=== PATIENT | female | born 1940 | race Caucasian/White ===

== ENCOUNTER 2016-12-03 09:01 | Observation (INO) | payer MEDICARE, BC ==
[2016-12-03] MEDS ORDERED: Sodium Chloride 0.9% 500 ML IV ONE (09:17)
--- NOTE | 2016-12-03 10:20 | CR ---
EXAMINATION: Portable chest radiograph. HISTORY: Bradycardia. FINDINGS: The trachea is midline. The cardiomediastinal silhouette is within normal limits. No pulmonary infil trates, effusions or pneumothorax. Osseous structures appear unremarkable. IMPRESSION: No acute cardiopulmonary process.
[2016-12-03] MEDS ORDERED: Sodium Chloride 0.9% 500 ML IV SCH (10:30)
--- NOTE | 2016-12-03 10:33 | EDM.PDOC ---
ED HPI GENERAL MEDICAL PROBLEM - General Chief Complaint: Neuro Symptoms/Deficits Stated Complaint: DIZZINESS Time Seen by Provider: 12/03/16 09:03 Source of Information: Reports: Patient History Limitations: Reports: No Limitations - History of Present Illness INITIAL COMMENTS - FREE TEXT/NARRATIVE: 76-year-old female with a history of dementia but lives at home and is ambulatory and functional, also with a history of hypothyroidism on Synthroid, also with a history of vertigo on meclizine as needed, and finally hypertension for which she takes metoprolol and lisinopril. Patient now presents emergency department feeling lightheaded she might faint. Her heart rate is in the high 40s. Patient thinks she's been compliant with her medications exactly as prescribed. She has not taken any additional doses intentionally. Denies chest pain or shortness of breath. No nausea vomiting diaphoresis. No exertional symptoms. Denies other complaints - Related Data Allergies Allergy/AdvReac Type Severity Reaction Status Date / Time No Known Allergies Allergy Verified 12/03/16 09:07 Home Meds: Home Meds Calcium Carbonate [Calcium] 600 mg PO DAILY 07/23/15 [History] Metoprolol Succinate [Toprol XL] 100 mg PO DAILY 07/23/15 [History] Potassium Chloride 10 meq PO DAILY 07/23/15 [History] Simvastatin [Zocor] 40 mg PO BEDTIME 07/23/15 [History] Sucralfate [Carafate] 1 gram PO QIDACANDBED 07/23/15 [History] Lisinopril/Hydrochlorothiazide [Lisinopril-Hctz 20-25 mg Tab] 1 tab PO DAILY [History] Triamcinolone Acetonide [IJD: Triamcinolone Acetonide 0.1% Crm] 1 gm TOP BID #1 tube 07/13/16 [Rx] Levothyroxine [Synthroid] 100 mcg PO ACBREAKFAST 12/03/16 [History] Meclizine [Antivert] 12.5 mg PO Q6H PRN 12/03/16 [History] Past Medical History HEENT History: Reports: None Cardiovascular History: Reports: High Cholesterol, Hypertension Respiratory History: Reports: None Gastrointestinal History: Reports: None Genitourinary History: Reports: None 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: Musculoskeletal History: Reports: None Neurological History: Reports: Other (See Below) Other Neuro History: dementia Psychiatric History: Reports: Dementia Endocrine/Metabolic History: Reports: Hypothyroidism Hematologic History: Reports: None Dermatologic History: Reports: None - Infectious Disease History Infectious Disease History: Reports: Chicken Pox, Mumps - Past Surgical History HEENT Surgical History: Reports: None GI Surgical History: Reports: Appendectomy, Cholecystectomy Female Surgical History: Reports: Hysterectomy Social & Family History - Family History Family Medical History: Noncontributory - Tobacco Use Smoking Status *Q: Never Smoker Second Hand Smoke Exposure: No - Caffeine Use Caffeine Use: Reports: Soda - Recreational Drug Use Recreational Drug Use: No ED ROS GENERAL - Review of Systems Review Of Systems: See Below (Per history of present illness) ED EXAM, GENERAL - Physical Exam Exam: See Below (Per history of present illness) Course - Vital Signs Last Recorded V/S: Last Vital Signs Temp 36.4 C 12/03/16 09:07 Pulse 47 L 12/03/16 09:07 Resp 18 12/03/16 09:07 BP 139/62 12/03/16 09:07 Pulse Ox 99 12/03/16 09:07 - Orders/Labs/Meds Orders: Active Orders 24 hr Category Date Time Status Admission Status [Patient Status] [ADT] Stat ADT 12/03/16 10:20 Ordered Cardiac Monitoring [RC] . DIRECTED Care 12/03/16 09:17 Active EKG Documentation Completion [RC] STAT Care 12/03/16 09:17 Active Oxygen Therapy [RC] ASDIRECTED Care 12/03/16 09:17 Active Sodium Chloride 0.9% [Normal Saline] 500 ml Med 12/03/16 10:30 Ordered IV STAT Medication Orders Sodium Chloride (Normal Saline) 500 mls @ 999 mls/hr IV STAT RUTH Labs: Laboratory Tests 12/03/16 12/03/16 12/03/16 Range/Units 09:27 09:27 09:27 WBC 7.81 (4.0-11.0) K/uL RBC 3.57 L (4.30-5.90) M/uL Hgb 11.2 L (12.0-16.0) g/dL Hct 34.5 L (36.0-46.0) % MCV 96.6 (80.0-98.0) fL MCH 31.4 (27.0-32.0) pg MCHC 32.5 (31.0-37.0) g/dL RDW Std Deviation 45.7 (28.0-62.0) fl RDW Coeff of Rafa 13 (11.0-15.0) % Plt Count 216 (150-400) K/uL MPV 9.80 (7.40-12.00) fL Neut % (Auto) 70.6 (48.0-80.0) % Lymph % (Auto) 18.8 (16.0-40.0) % Vigo % (Auto) 9.0 (0.0-15.0) % Eos % (Auto) 1.3 (0.0-7.0) % Baso % (Auto) 0.3 (0.0-1.5) % Neut # (Auto) 5.5 (1.4-5.7) K/uL Lymph # (Auto) 1.5 (0.6-2.4) K/uL Vigo # (Auto) 0.7 (0.0-0.8) K/uL Eos # (Auto) 0.1 (0.0-0.7) K/uL Baso # (Auto) 0.0 (0.0-0.1) K/uL Nucleated RBC % 0.0 /100WBC Nucleated RBCs # 0 K/uL INR 0.97 (0.86-1.11) Sodium 139 (136-146) mmol/L Potassium 4.3 (3.5-5.1) mmol/L Chloride 108 (98-110) mmol/L Carbon Dioxide 24 (21-31) mmol/L BUN 26 H (6.0-23.0) mg/dL Creatinine 1.2 (0.6-1.5) mg/dL Est Cr Clr Drug Dosing 34.77 mL/min Estimated GFR (MDRD) 43.4 ml/min Glucose 86 (60-110) mg/dL Calcium 9.4 (8.8-10.8) mg/dL Total Bilirubin 0.6 (0.1-1.5) mg/dL AST 16 (5-40) IU/L ALT 11 (8-54) IU/L Alkaline Phosphatase 60 (40-150) Troponin I (0.0-0.29) NG/ML Total Protein 7.0 (6.0-8.0) g/dL Albumin 3.9 (3.4-4.8) g/dL Globulin 3.1 (2.0-3.5) g/dL Albumin/Globulin Ratio 1.3 (1.3-2.8) Amylase 36 (10-90) U/L Lipase 14 (7-80) U/L 12/03/16 Range/Units 09:27 WBC (4.0-11.0) K/uL RBC (4.30-5.90) M/uL Hgb (12.0-16.0) g/dL Hct (36.0-46.0) % MCV (80.0-98.0) fL MCH (27.0-32.0) pg MCHC (31.0-37.0) g/dL RDW Std Deviation (28.0-62.0) fl RDW Coeff of Rafa (11.0-15.0) % Plt Count (150-400) K/uL MPV (7.40-12.00) fL Neut % (Auto) (48.0-80.0) % Lymph % (Auto) (16.0-40.0) % Vigo % (Auto) (0.0-15.0) % Eos % (Auto) (0.0-7.0) % Baso % (Auto) (0.0-1.5) % Neut # (Auto) (1.4-5.7) K/uL Lymph # (Auto) (0.6-2.4) K/uL Vigo # (Auto) (0.0-0.8) K/uL Eos # (Auto) (0.0-0.7) K/uL Baso # (Auto) (0.0-0.1) K/uL Nucleated RBC % /100WBC Nucleated RBCs # K/uL INR (0.86-1.11) Sodium (136-146) mmol/L Potassium (3.5-5.1) mmol/L Chloride (98-110) mmol/L Carbon Dioxide (21-31) mmol/L BUN (6.0-23.0) mg/dL Creatinine (0.6-1.5) mg/dL Est Cr Clr Drug Dosing mL/min Estimated GFR (MDRD) ml/min Glucose (60-110) mg/dL Calcium (8.8-10.8) mg/dL Total Bilirubin (0.1-1.5) mg/dL AST (5-40) IU/L ALT (8-54) IU/L Alkaline Phosphatase (40-150) Troponin I < 0.10 (0.0-0.29) NG/ML Total Protein (6.0-8.0) g/dL Albumin (3.4-4.8) g/dL Globulin (2.0-3.5) g/dL Albumin/Globulin Ratio (1.3-2.8) Amylase (10-90) U/L Lipase (7-80) U/L Meds: Medications Generic Name Dose Route Start Last Admin Trade Name Freq PRN Reason Stop Dose Admin Sodium Chloride 500 mls @ 999 mls/hr 12/03/16 10:30 Normal Saline IV STAT RUTH Discontinued Medications Generic Name Dose Route Start Last Admin Trade Name Freq PRN Reason Stop Dose Admin Sodium Chloride 500 mls @ 999 mls/hr 12/03/16 09:17 12/03/16 09:24 Normal Saline IV 12/03/16 09:47 999 mls/hr .Bolus ONE Administration Departure - Departure Time of Disposition: 10:32 Disposition: Refer to Observation Condition: good Clinical Impression: Symptomatic bradycardia, Dizziness - Discharge Information Forms: ED Department Discharge - My Orders Last 24 Hours: My Active Orders 12/03/16 09:17 Cardiac Monitoring [RC] . DIRECTED EKG Documentation Completion [RC] STAT Oxygen Therapy [RC] ASDIRECTED 12/03/16 10:20 Admission Status [Patient Status] [ADT] Stat 12/03/16 10:30 Sodium Chloride 0.9% [Normal Saline] 500 ml IV STAT - Assessment/Plan Last 24 Hours: My Active Orders 12/03/16 09:17 Cardiac Monitoring [RC] . DIRECTED EKG Documentation Completion [RC] STAT Oxygen Therapy [RC] ASDIRECTED 12/03/16 10:20 Admission Status [Patient Status] [ADT] Stat 12/03/16 10:30 Sodium Chloride 0.9% [Normal Saline] 500 ml IV STAT
[2016-12-03] MEDS ORDERED: Ondansetron 4 MG/2 ML SDV IVPUSH PRN (10:58)
--- NOTE | 2016-12-03 11:07 | PCM.HP ---
H&P History of Present Illness - General Admit Problem/Dx: Admission Diagnosis/Problem Admission Diagnosis/Problem Bradycardia - History of Present Illness Initial Comments - Free Text/Narative: 76 yo female with pmh of vertigo, hypertension and dementia who presents with one day history of dizziness. She is mainly dizzy when she stands up. Due to her dementia she is a poor historian. She was admitted five months ago for vertigo. In the ED she was noted to have blood pressure of 151/76 and heart rate of 47 with left bundle branch block which was seen on EKG on last admission. She has been taking metoprolol succinate 100mg daily for several years for hypertension. - Related Data Allergies/Adverse Reactions: Allergies Allergy/AdvReac Type Severity Reaction Status Date / Time No Known Allergies Allergy Verified 12/03/16 09:07 Home Medications: Home Meds Metoprolol Succinate [Toprol XL] 100 mg PO DAILY 07/23/15 [History] Potassium Chloride 10 meq PO DAILY 07/23/15 [History] Simvastatin [Zocor] 40 mg PO BEDTIME 07/23/15 [History] Sucralfate [Carafate] 1 gram PO QIDACANDBED 07/23/15 [History] Lisinopril/Hydrochlorothiazide [Lisinopril-Hctz 20-25 mg Tab] 1 tab PO DAILY [History] Triamcinolone Acetonide [IJD: Triamcinolone Acetonide 0.1% Crm] 1 gm TOP BID #1 tube 07/13/16 [Rx] Levothyroxine [Synthroid] 100 mcg PO ACBREAKFAST 12/03/16 [History] Meclizine [Antivert] 12.5 mg PO Q6H PRN 12/03/16 [History] Past Medical History HEENT History: Reports: None Cardiovascular History: Reports: High Cholesterol, Hypertension Respiratory History: Reports: None Gastrointestinal History: Reports: None Genitourinary History: Reports: None 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: Musculoskeletal History: Reports: None Neurological History: Reports: Other (See Below) Other Neuro History: dementia Psychiatric History: Reports: Dementia Endocrine/Metabolic History: Reports: Hypothyroidism Hematologic History: Reports: None Dermatologic History: Reports: None - Infectious Disease History Infectious Disease History: Reports: Chicken Pox, Mumps - Past Surgical History HEENT Surgical History: Reports: None GI Surgical History: Reports: Appendectomy, Cholecystectomy Female Surgical History: Reports: Hysterectomy Social & Family History - Family History Family Medical History: Noncontributory - Tobacco Use Smoking Status *Q: Never Smoker Second Hand Smoke Exposure: No - Caffeine Use Caffeine Use: Reports: Soda - Recreational Drug Use Recreational Drug Use: No H&P Review of Systems - Review of Systems: Review Of Systems: Unable To Obtain Exam - Exam Exam: See Below - Vital Signs Vital Signs: Last Vital Signs Temp 36.4 C 12/03/16 09:07 Pulse 48 L 12/03/16 10:20 Resp 18 12/03/16 10:20 BP 124/56 L 12/03/16 10:20 Pulse Ox 99 12/03/16 10:20 Weight: 72 kg - Exam General: Alert, Cooperative HEENT: Mucosa Moist & Redmon Lungs: Clear to Auscultation, Normal Respiratory Effort Cardiovascular: Regular Rate, Regular Rhythm Abdomen: Soft. No: Tenderness Extremities: Normal Inspection Skin: Warm, Dry, Intact Neurological: No: Focal Deficit - Patient Data Lab Results Last 24 hrs: Laboratory Results - last 24 hr 12/03/16 12/03/16 12/03/16 Range/Units 09:27 09:27 09:27 WBC 7.81 (4.0-11.0) K/uL RBC 3.57 L (4.30-5.90) M/uL Hgb 11.2 L (12.0-16.0) g/dL Hct 34.5 L (36.0-46.0) % MCV 96.6 (80.0-98.0) fL MCH 31.4 (27.0-32.0) pg MCHC 32.5 (31.0-37.0) g/dL RDW Std Deviation 45.7 (28.0-62.0) fl RDW Coeff of Rafa 13 (11.0-15.0) % Plt Count 216 (150-400) K/uL MPV 9.80 (7.40-12.00) fL Neut % (Auto) 70.6 (48.0-80.0) % Lymph % (Auto) 18.8 (16.0-40.0) % Dixon % (Auto) 9.0 (0.0-15.0) % Eos % (Auto) 1.3 (0.0-7.0) % Baso % (Auto) 0.3 (0.0-1.5) % Neut # (Auto) 5.5 (1.4-5.7) K/uL Lymph # (Auto) 1.5 (0.6-2.4) K/uL Dixon # (Auto) 0.7 (0.0-0.8) K/uL Eos # (Auto) 0.1 (0.0-0.7) K/uL Baso # (Auto) 0.0 (0.0-0.1) K/uL Nucleated RBC % 0.0 /100WBC Nucleated RBCs # 0 K/uL INR 0.97 (0.86-1.11) Sodium 139 (136-146) mmol/L Potassium 4.3 (3.5-5.1) mmol/L Chloride 108 (98-110) mmol/L Carbon Dioxide 24 (21-31) mmol/L BUN 26 H (6.0-23.0) mg/dL Creatinine 1.2 (0.6-1.5) mg/dL Est Cr Clr Drug Dosing 34.77 mL/min Estimated GFR (MDRD) 43.4 ml/min Glucose 86 (60-110) mg/dL Calcium 9.4 (8.8-10.8) mg/dL Total Bilirubin 0.6 (0.1-1.5) mg/dL AST 16 (5-40) IU/L ALT 11 (8-54) IU/L Alkaline Phosphatase 60 (40-150) Troponin I (0.0-0.29) NG/ML Total Protein 7.0 (6.0-8.0) g/dL Albumin 3.9 (3.4-4.8) g/dL Globulin 3.1 (2.0-3.5) g/dL Albumin/Globulin Ratio 1.3 (1.3-2.8) Amylase 36 (10-90) U/L Lipase 14 (7-80) U/L 12/03/16 Range/Units 09:27 WBC (4.0-11.0) K/uL RBC (4.30-5.90) M/uL Hgb (12.0-16.0) g/dL Hct (36.0-46.0) % MCV (80.0-98.0) fL MCH (27.0-32.0) pg MCHC (31.0-37.0) g/dL RDW Std Deviation (28.0-62.0) fl RDW Coeff of Rafa (11.0-15.0) % Plt Count (150-400) K/uL MPV (7.40-12.00) fL Neut % (Auto) (48.0-80.0) % Lymph % (Auto) (16.0-40.0) % Dixon % (Auto) (0.0-15.0) % Eos % (Auto) (0.0-7.0) % Baso % (Auto) (0.0-1.5) % Neut # (Auto) (1.4-5.7) K/uL Lymph # (Auto) (0.6-2.4) K/uL Dixon # (Auto) (0.0-0.8) K/uL Eos # (Auto) (0.0-0.7) K/uL Baso # (Auto) (0.0-0.1) K/uL Nucleated RBC % /100WBC Nucleated RBCs # K/uL INR (0.86-1.11) Sodium (136-146) mmol/L Potassium (3.5-5.1) mmol/L Chloride (98-110) mmol/L Carbon Dioxide (21-31) mmol/L BUN (6.0-23.0) mg/dL Creatinine (0.6-1.5) mg/dL Est Cr Clr Drug Dosing mL/min Estimated GFR (MDRD) ml/min Glucose (60-110) mg/dL Calcium (8.8-10.8) mg/dL Total Bilirubin (0.1-1.5) mg/dL AST (5-40) IU/L ALT (8-54) IU/L Alkaline Phosphatase (40-150) Troponin I < 0.10 (0.0-0.29) NG/ML Total Protein (6.0-8.0) g/dL Albumin (3.4-4.8) g/dL Globulin (2.0-3.5) g/dL Albumin/Globulin Ratio (1.3-2.8) Amylase (10-90) U/L Lipase (7-80) U/L Result Diagrams: 12/04/16 04:23 12/04/16 04:23 *Q Meaningful Use (ADM) - VTE *Q VTE Criteria *Q: - Stroke *Q Stroke Criteria *Q: - AMI *Q AMI Criteria *Q: Problem List Initiated/Reviewed/Updated: Yes Orders Last 24hrs: Active Orders 24 hr Category Date Time Status Admission Status [Patient Status] [ADT] Stat ADT 12/03/16 10:20 Active Antiembolic Devices [RC] PER UNIT ROUTINE Care 12/03/16 11:00 Ordered Cardiac Monitoring [RC] . DIRECTED Care 12/03/16 09:17 Active EKG Documentation Completion [RC] STAT Care 12/03/16 09:17 Active Intake and Output [RC] QSHIFT Care 12/03/16 10:59 Ordered Oxygen Therapy [RC] ASDIRECTED Care 12/03/16 09:17 Active Oxygen Therapy [RC] PRN Care 12/03/16 10:58 Ordered Up With Assistance [RC] ASDIRECTED Care 12/03/16 10:58 Ordered VTE/DVT Education [RC] PER UNIT ROUTINE Care 12/03/16 10:58 Ordered Vital Signs [RC] Q4H Care 12/03/16 10:58 Ordered Regular Diet [DIET] Diet 12/03/16 Breakfast Ordered BASIC METABOLIC PANEL,BMP [CHEM] AM Lab 12/04/16 05:11 Ordered CBC WITH AUTO DIFF [HEME] AM Lab 12/04/16 05:11 Ordered TROPONIN I [CHEM] Q6H Lab 12/03/16 17:00 Ordered TROPONIN I [CHEM] Q6H Lab 12/03/16 23:00 Ordered TSH [CHEM] Stat Lab 12/03/16 11:02 Ordered Heparin Sodium Med 12/03/16 21:00 Ordered 5,000 units SUBCUT Q12HR Levothyroxine [Synthroid] Med 12/04/16 07:30 Ordered 100 mcg PO ACBREAKFAST Ondansetron [Zofran] Med 12/03/16 10:58 Ordered 4 mg IVPUSH Q4H PRN Simvastatin [Zocor] Med 12/03/16 21:00 Ordered 40 mg PO BEDTIME Sodium Chloride 0.9% [Normal Saline] 500 ml Med 12/03/16 10:30 Active IV STAT Sequential Compression Device [OM.PC] Per Unit Routine Oth 12/03/16 10:59 Ordered Resuscitation Status Routine Resus Stat 12/03/16 10:58 Ordered Medication Orders Heparin Sodium (Porcine) (Heparin Sodium) 5,000 units SUBCUT Q12HR [facility] Sodium Chloride (Normal Saline) 500 mls @ 999 mls/hr IV STAT RUTH Last Admin: 12/03/16 10:34 Dose: 999 mls/hr Levothyroxine Sodium (Synthroid) 100 mcg PO ACBREAKFAST [facility] Ondansetron HCl (Zofran) 4 mg IVPUSH Q4H PRN PRN Reason: Nausea Simvastatin (Zocor) 40 mg PO BEDTIME [facility] Assessment/Plan Comment:: 76 yo female admitted for dizziness with history of vertigo and findings of bradycardia. Her metoprolol was discontinued and she monitored on telemetry overnight. Her heart rate ranged 45-70 but was mostly in the 50s. This morning she is walking hallway without difficulty. is requesting discharge. I did discuss case with Dr. Gustafson but family is wanting to discharged this morning before seeing him and follow up with him as outpatient. Will set up home event monitor. Will have them discontinue metoprolol at home. Patient has heme positive stools but hgb has been stable. Will have her follow up with Dr. Gonzalez.
--- NOTE | 2016-12-03 14:25 | CT ---
EXAMINATION: Non contrast CT head. Coronal and sagittal reformats. HISTORY: Dizziness FINDINGS: No evidence of intra or extra axial hemorrhage, mass, midline shift, hydrocephalus or edema. Mild g eneralized atrophy. No hypoattenuation changes in the major vascular territories to suggest acute infarct. No abnormal intracranial calcifications are detected. No evidence of substantial vascular calcifica tions. Paranasal sinuses and mastoid air cells are well aerated without substantial findings. The orbits a nd globes appear symmetric. Pituitary fossa appears unremarkable. Calvarium is intact. No evidence of skull fracture. IMPRESSION: No acute intracranial findings.
[2016-12-03] MEDS ORDERED: Heparin Sodium 5,000 Units/ML Vial SUBCUT SCH (21:00)
[2016-12-03] MEDS ORDERED: Simvastatin 40 MG Tab PO SCH (21:00)
[2016-12-04] MEDS ORDERED: Levothyroxine 100 MCG Tab PO SCH (07:30)
[2016-12-04 09:49] VITALS: BP 129/90
--- NOTE | 2016-12-04 12:53 | CONS ---
DATE OF CONSULTATION: 12/03/2016 DATE OF : 1940 PRIMARY CARE PHYSICIAN: None PCP REASON FOR CONSULTATION: Bradycardia, symptomatic. HISTORY OF PRESENT ILLNESS: This is a 76-year-old female with history of hyperlipidemia, hypertension, hypothyroidism who has been in the hospital for feeling dizzy. The patient also had a history of dementia and the patient is a poor historian. She was not sure what reason and why she is in the hospital. She did not know the time and date. However later when asked her about feeling dizzy, she said yes I felt dizzy, but she is not currently and also she denied other symptoms such as chest pain, shortness of breath. She also was saying that she did not feel any dizzy when she walked around. However when looked back in the outpatient record, seems like she has a chronic dizziness and determined to be vertigo. Her heart rate stay in the 40 and 50 all the time and when reviewed vital signs from the outpatient record, it seems that her heart rate stays in the range of 60-70. She is also on metoprolol for a long time for her blood pressure and this has been on hold and also I reviewed the telemetry since she was admitted in the hospital, there is no evidence of AV block. Apparently, the patient was brought here by her , however her already have left home. PAST MEDICAL HISTORY: Hypertension, hypothyroidism and hyperlipidemia. REVIEW OF SYSTEMS: A 12-point review of system is negative except as indicated in the HPI. SOCIAL HISTORY: She denies smoking, drinking, or drug use. FAMILY HISTORY: No history of CAD. PHYSICAL EXAMINATION: VITAL SIGNS: Blood pressure is 150/54, heart rate of 40 to 50, temperature 36.7, respirations 18, O2 sat 100 on 2 L. HEENT: Not pale. No jaundice. No JVD. HEART: Normal S1, S2. Bradycardia. LUNGS: Clear. ABDOMEN: Soft, nontender. Bowel sounds present. No hepatosplenomegaly. EXTREMITIES: No edema. LABORATORY INVESTIGATION: CBC showed WBC 7, hematocrit 34, platelet 216. Sodium 139, potassium 4.3, bicarb 24, BUN 26, creatinine 1.2, TSH 1.9 normal. Troponin was negative. EKG showed left bundle-branch block pattern. There seemed to be present from the previous admission this year heart rate of 48. ASSESSMENT AND PLAN: This is a 76-year-old female with hypertension, hyperlipidemia, hypothyroidism with bradycardia and she has been on beta-ethel for a long time for her blood pressure and this has been on hold. Recommended to hold it and observe her heart rate. She may well need a pacemaker; however, I would like to discuss with her about how aggressive that he wanted to do and also regarding her abnormal EKG including left bundle-branch block pattern, it seem that like her left bundle-branch block pattern has been going on for a while. We did not have any prior cardiac history or cardiac testing. This may be related to the block, CAD or conduction disease. I will have to talk to her regarding how aggressive that he wanted to do. Recommended to hold the beta-ethel for now and observe her heart rate on the telemetry. PEYTON HINSON /[id number]
== END 2016-12-04 09:35 | disposition home or self-care (01) ==
LOC: MW.ED 09:01 → MW.MS 11:28 → INTOOBSV 11:28
PROVIDERS: ADMIT Internal Medicine; ATTEND Internal Medicine
DX: R00.1 Bradycardia, unspecified (principal); I10 Essential (primary) hypertension; F03.90 Unspecified dementia, unspecified severity, without behavioral disturbance, psychotic disturbance, mood disturbance, and anxiety; R42 Dizziness and giddiness; E78.00 Pure hypercholesterolemia, unspecified; E03.9 Hypothyroidism, unspecified; E78.5 Hyperlipidemia, unspecified; Z90.49 Acquired absence of other specified parts of digestive tract; Z90.710 Acquired absence of both cervix and uterus; Z79.899 Other long term (current) drug therapy
CPT/HCPCS: 36415; 70450; 71010; 80048; 80053; 81001; 82150; 82272; 83690; 84443; 84484; 85025; 85610; 93005; 99285; A9270; G0378; J7040

== ENCOUNTER 2017-02-21 11:39 | Emergency (ER) | payer MEDICARE, BC ==
--- NOTE | 2017-02-21 11:58 | EDM.PDOC ---
ED HPI GENERAL MEDICAL PROBLEM - General Chief Complaint: General Stated Complaint: PT IS UPSET Time Seen by Provider: 02/21/17 11:51 Source of Information: Reports: Patient, Family History Limitations: Reports: No Limitations - History of Present Illness INITIAL COMMENTS - FREE TEXT/NARRATIVE: HISTORY AND PHYSICAL: History of present illness: Patient is a 76-year-old female that presents to the emergency room by her with complaints of anxiety and crying. reports his has dementia and has frequent outbursts of crying and anxiety which he gives her "pills for this "and it will usually resolve. is concerned because over the last week she has had crying outbursts and has been waking up early in the morning. Patient reports "I'm not sure why he feels so anxious or why am crying ". Patient is easily calmed when spoken to, but returns to crying. Patient denies any pain or other concerns. Denies any chest pain, palpitations, headache, or GI/ symptoms. request that we get a hold of Dr. Gonzalez, "He'll know what to do". Review of systems: As per history of present illness and below otherwise all systems reviewed and negative. Past medical history: As per history of present illness and as reviewed below otherwise noncontributory. Surgical history: As per history of present illness and as reviewed below otherwise noncontributory. Social history: No reported history of drug or alcohol abuse. Family history: As per history of present illness and as reviewed below otherwise noncontributory. Physical exam: Gen.: Nontoxic appearing 76-year-old female. Tearful. Answers questions appropriately. Able to speak in full sentences without shortness of breath. HEENT: Atraumatic, normocephalic, pupils reactive, negative for conjunctival pallor or scleral icterus, mucous membranes moist, throat clear, neck supple, nontender, trachea midline. Lungs: Clear to auscultation, breath sounds equal bilaterally, chest nontender. Heart: S1S2, regular, negative for clicks, rubs, or JVD. Abdomen: Soft, nondistended, nontender. Negative for masses or hepatosplenomegaly. Negative for costovertebral tenderness. Pelvis: Stable nontender. Genitourinary: Deferred. Rectal: Deferred. Extremities: Atraumatic, negative for cords or calf pain. Neurovascular unremarkable. Neuro: Awake, alert, oriented. Cranial nerves II through XII unremarkable. Cerebellum unremarkable. Motor and sensory unremarkable throughout. Exam nonfocal. Dr. Gonzalez did change her prescription for haloperidol 0.5 mg to 1 mg, 1 to 2 tablets daily as needed for excessive crying or agitation. Prescription was called into [facility]. Both patient and were notified of this and will follow up with Dr. Gonzalez as directed. Voiced understanding and are agreeable to plan of care. Diagnostics: Dr. Gonzalez was consulted Therapeutics: Reassurance Impression: General medical exam Plan: 1. Please follow-up with Dr. Gonzalez in the next 1-2 days 2. A prescription for haloperidol was called in to [facility] (this dose was increased from 0.5-1 mg tablets). Please take this medication up and take as directed. Continue to take all your routine medication as directed. 3. Discussed with family and patient the need for follow-up care for psychiatric evaluation and or residential placement. 4. Follow-up in the emergency department as needed as discussed. Definitive disposition and diagnosis as appropriate pending reevaluation and review of above. Duration: Chronic Improves with: Reports: None Worsens with: Reports: None Associated Symptoms: Reports: No Other Symptoms - Related Data Allergies Allergy/AdvReac Type Severity Reaction Status Date / Time No Known Allergies Allergy Verified 12/03/16 09:07 Home Meds: Home Meds Potassium Chloride 10 meq PO DAILY 07/23/15 [History] Simvastatin [Zocor] 40 mg PO BEDTIME 07/23/15 [History] Sucralfate [Carafate] 1 gram PO QIDACANDBED 07/23/15 [History] Lisinopril/Hydrochlorothiazide [Lisinopril-Hctz 20-25 mg Tab] 1 tab PO DAILY [History] Triamcinolone Acetonide [IJD: Triamcinolone Acetonide 0.1% Crm] 1 gm TOP BID #1 tube 07/13/16 [Rx] Levothyroxine [Synthroid] 100 mcg PO ACBREAKFAST 12/03/16 [History] Meclizine [Antivert] 12.5 mg PO Q6H PRN 12/03/16 [History] Donepezil [Aricept] 1 tab PO DAILY 02/21/17 [History] Haloperidol [Haldol] 1 - 2 tab PO DAILY PRN 02/21/17 [History] Past Medical History HEENT History: Reports: None Cardiovascular History: Reports: High Cholesterol, Hypertension Respiratory History: Reports: None Gastrointestinal History: Reports: None Genitourinary History: Reports: None [employer]ER History: Reports: Musculoskeletal History: Reports: None Neurological History: Reports: Other (See Below) Other Neuro History: dementia Psychiatric History: Reports: Dementia Endocrine/Metabolic History: Reports: Hypothyroidism Hematologic History: Reports: None Dermatologic History: Reports: None - Infectious Disease History Infectious Disease History: Reports: Chicken Pox, Mumps - Past Surgical History HEENT Surgical History: Reports: None GI Surgical History: Reports: Appendectomy, Cholecystectomy Female Surgical History: Reports: Hysterectomy Social & Family History - Family History Family Medical History: Noncontributory Cardiac: Reports: [place] - Tobacco Use Smoking Status *Q: Never Smoker Second Hand Smoke Exposure: No - Caffeine Use Caffeine Use: Reports: Soda - Recreational Drug Use Recreational Drug Use: No ED ROS GENERAL - Review of Systems Review Of Systems: ROS reveals no pertinent complaints other than HPI. ED EXAM, GENERAL - Physical Exam Exam: See Below (See dictation) Course - Vital Signs Last Recorded V/S: Last Vital Signs Temp 35.9 C 02/21/17 12:40 Pulse 73 02/21/17 12:40 Resp 12 02/21/17 12:40 BP 113/56 L 02/21/17 12:40 Pulse Ox 97 02/21/17 12:40 - Orders/Labs/Meds Meds: Medications Discontinued Medications Generic Name Dose Route Start Last Admin Trade Name Osbaldo PRN Reason Stop Dose Admin Lorazepam 1 mg 02/21/17 12:01 02/21/17 12:13 Ativan PO 02/21/17 12:02 1 mg ONETIME ONE Administration Departure - Departure Time of Disposition: 22:00 Disposition: Home, Self-Care 01 Clinical Impression: Encounter for medical screening examination - Discharge Information Instructions: Medical Screening Exam Referrals: Giovanny Gonzalez MD [Primary Care Provider] - Forms: ED Department Discharge Additional Instructions: The following information is given to patients seen in the emergency department who are being discharged to home. This information is to outline your options for follow-up care. We provide all patients seen in our emergency department with a follow-up referral. The need for follow-up, as well as the timing and circumstances, are variable depending upon the specifics of your emergency department visit. If you don't have a primary care physician on staff, we will provide you with a referral. We always advise you to contact your personal physician following an emergency department visit to inform them of the circumstance of the visit and for follow-up with them and/or the need for any referrals to a consulting specialist. The emergency department will also refer you to a specialist when appropriate. This referral assures that you have the opportunity for followup care with a specialist. All of these measure are taken in an effort to provide you with optimal care, which includes your followup. Under all circumstances we always encourage you to contact your private physician who remains a resource for coordinating your care. When calling for followup care, please make the office aware that this follow-up is from your recent emergency room visit. If for any reason you are refused follow-up, please contact the [facility] emergency department at and asked to speak to the emergency department charge nurse. [facility] [address] [place] [id number] 1. Please follow-up with Dr. Gonzalez in the next 1-2 days 2. A prescription for haloperidol was called in to [facility]. Please take this medication up and take as directed. Continue to take all your routine medication as directed. 3. Follow-up in the emergency department as needed as discussed.
[2017-02-21] MEDS ORDERED: LORazepam 1 MG Tab PO ONE (12:01)
[2017-02-21 14:35] VITALS: BP 113/56
== END 2017-02-21 12:40 | disposition home or self-care (01) ==
LOC: MW.ED 11:39
DX: Z00.00 Encounter for general adult medical examination without abnormal findings (principal); I10 Essential (primary) hypertension; E03.9 Hypothyroidism, unspecified; E78.00 Pure hypercholesterolemia, unspecified; Z90.49 Acquired absence of other specified parts of digestive tract; Z79.899 Other long term (current) drug therapy; Z90.710 Acquired absence of both cervix and uterus
CPT/HCPCS: 99283; A9270

== ENCOUNTER 2017-02-25 18:09 | Observation (INO) | payer MEDICARE, BC ==
[2017-02-25] MEDS ORDERED: Sodium Chloride 0.9% 1,000 ML IV ONE (18:41)
[2017-02-25] MEDS ORDERED: LORazepam 2 MG/ML MDV IVPUSH ONE (19:00)
[2017-02-25] MEDS ORDERED: Ketorolac 30 MG/ML SDV IVPUSH ONE (19:00)
--- NOTE | 2017-02-25 19:18 | EDM.PDOC ---
ED HPI GENERAL MEDICAL PROBLEM - General Chief Complaint: General Stated Complaint: WEAK AND DIZZY Time Seen by Provider: 02/25/17 18:16 Source of Information: Reports: Patient, Family History Limitations: Reports: No Limitations - History of Present Illness INITIAL COMMENTS - FREE TEXT/NARRATIVE: History of present illness: [76-year-old female brought in by with concerns of dizziness as well as lightheadedness and general feelings of being unwell. Patient is pleasantly confused but has history of dementia. Has been indicates patient fell when she became lightheaded but landed in the chair without striking her head. There was no incidence of loss of consciousness per the nor was there any nausea vomiting.] Review of systems: As per history of present illness and below otherwise all systems reviewed and negative. Past medical history: As per history of present illness and as reviewed below otherwise noncontributory. Surgical history: As per history of present illness and as reviewed below otherwise noncontributory. Social history: No reported history of drug or alcohol abuse. Family history: As per history of present illness and as reviewed below otherwise noncontributory. Physical exam: HEENT: Atraumatic, normocephalic, pupils reactive, negative for conjunctival pallor or scleral icterus, mucous membranes moist, throat clear, neck supple, nontender, trachea midline. Lungs: Clear to auscultation, breath sounds equal bilaterally, chest nontender. Heart: S1S2, regular, negative for clicks, rubs, or JVD. Abdomen: Soft, nondistended, nontender. Negative for masses or hepatosplenomegaly. Negative for costovertebral tenderness. Pelvis: Stable nontender. Genitourinary: Deferred. Rectal: Deferred. Extremities: Atraumatic, negative for cords or calf pain. Neurovascular unremarkable. Neuro: Awake, alert, with baseline dementia. Patient able to move all extremities spontaneously but has difficulty following commands due to underlying dementia. Exam nonfocal. Diagnostics: CBC, CMP, CT of head without contrast Therapeutics: [IV fluid, Toradol, monitor] Impression: [#1 dizziness #2 observation status post fall #3 history of dementia ] Plan: [Admit to observation] Definitive disposition and diagnosis as appropriate pending reevaluation and review of above. - Related Data Allergies Allergy/AdvReac Type Severity Reaction Status Date / Time No Known Allergies Allergy Verified 02/25/17 18:30 Home Meds: Home Meds Potassium Chloride 10 meq PO DAILY 07/23/15 [History] Simvastatin [Zocor] 40 mg PO BEDTIME 07/23/15 [History] Sucralfate [Carafate] 1 gram PO QIDACANDBED 07/23/15 [History] Lisinopril/Hydrochlorothiazide [Lisinopril-Hctz 20-25 mg Tab] 1 tab PO DAILY [History] Triamcinolone Acetonide [IJD: Triamcinolone Acetonide 0.1% Crm] 1 gm TOP BID #1 tube 07/13/16 [Rx] Levothyroxine [Synthroid] 100 mcg PO ACBREAKFAST 12/03/16 [History] Meclizine [Antivert] 12.5 mg PO Q6H PRN 12/03/16 [History] Donepezil [Aricept] 1 tab PO DAILY 02/21/17 [History] Haloperidol [Haldol] 1 - 2 tab PO DAILY PRN 02/21/17 [History] Past Medical History HEENT History: Reports: None Other HEENT History: wears glasses Cardiovascular History: Reports: High Cholesterol, Hypertension Respiratory History: Reports: None Gastrointestinal History: Reports: None Genitourinary History: Reports: None PAN PUSHER History: 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: Musculoskeletal History: Reports: None Neurological History: Reports: Other (See Below) Other Neuro History: dementia Psychiatric History: Reports: Dementia Endocrine/Metabolic History: Reports: Hypothyroidism Hematologic History: Reports: None Dermatologic History: Reports: None - Infectious Disease History Infectious Disease History: Reports: Chicken Pox, Measles - Past Surgical History HEENT Surgical History: Reports: None GI Surgical History: Reports: Appendectomy, Cholecystectomy Female Surgical History: Reports: Hysterectomy Social & Family History - Family History Family Medical History: Noncontributory Cardiac: Reports: [place] - Tobacco Use Smoking Status *Q: Never Smoker Second Hand Smoke Exposure: No - Caffeine Use Caffeine Use: Reports: Soda - Recreational Drug Use Recreational Drug Use: No ED ROS GENERAL - Review of Systems Review Of Systems: See Below (See history of present illness) ED EXAM, GENERAL - Physical Exam Exam: See Below (See history of present illness) Course - Vital Signs Last Recorded V/S: Last Vital Signs Temp 36.2 C 02/25/17 18:23 Pulse 85 02/25/17 18:23 Resp 18 02/25/17 18:23 BP 130/62 02/25/17 18:23 Pulse Ox 98 02/25/17 18:23 - Orders/Labs/Meds Orders: Active Orders 24 hr Category Date Time Status Head wo Cont [CT] Stat Exams 02/25/17 18:41 Ordered UA W/MICROSCOPIC [URIN] Stat Lab 02/25/17 18:41 Uncollected Labs: Laboratory Tests 02/25/17 02/25/17 Range/Units 19:05 19:05 WBC 8.47 (4.0-11.0) K/uL RBC 3.68 L (4.30-5.90) M/uL Hgb 11.8 L (12.0-16.0) g/dL Hct 35.2 L (36.0-46.0) % MCV 95.7 (80.0-98.0) fL MCH 32.1 H (27.0-32.0) pg MCHC 33.5 (31.0-37.0) g/dL RDW Std Deviation 44.7 (28.0-62.0) fl RDW Coeff of Rafa 13 (11.0-15.0) % Plt Count 260 (150-400) K/uL MPV 9.90 (7.40-12.00) fL Neut % (Auto) 65.0 (48.0-80.0) % Lymph % (Auto) 25.9 (16.0-40.0) % Beaver % (Auto) 7.9 (0.0-15.0) % Eos % (Auto) 0.8 (0.0-7.0) % Baso % (Auto) 0.4 (0.0-1.5) % Neut # (Auto) 5.5 (1.4-5.7) K/uL Lymph # (Auto) 2.2 (0.6-2.4) K/uL Beaver # (Auto) 0.7 (0.0-0.8) K/uL Eos # (Auto) 0.1 (0.0-0.7) K/uL Baso # (Auto) 0.0 (0.0-0.1) K/uL Nucleated RBC % 0.0 /100WBC Nucleated RBCs # 0 K/uL Sodium 138 (136-146) mmol/L Potassium 3.6 (3.5-5.1) mmol/L Chloride 105 (98-110) mmol/L Carbon Dioxide 22 (21-31) mmol/L BUN 25 H (6.0-23.0) mg/dL Creatinine 1.2 (0.6-1.5) mg/dL Est Cr Clr Drug Dosing 31.96 mL/min Estimated GFR (MDRD) 43.4 ml/min Glucose 151 H (60-110) mg/dL Calcium 10.0 (8.8-10.8) mg/dL Total Bilirubin 0.5 (0.1-1.5) mg/dL AST 19 (5-40) IU/L ALT 14 (8-54) IU/L Alkaline Phosphatase 68 (40-150) Total Protein 7.2 (6.0-8.0) g/dL Albumin 3.9 (3.4-4.8) g/dL Globulin 3.3 (2.0-3.5) g/dL Albumin/Globulin Ratio 1.2 L (1.3-2.8) Meds: Medications Discontinued Medications Generic Name Dose Route Start Last Admin Trade Name Freq PRN Reason Stop Dose Admin Sodium Chloride 1,000 mls @ 999 mls/hr 02/25/17 18:41 02/25/17 19:06 Normal Saline IV 02/25/17 19:41 999 mls/hr STAT ONE Administration Ketorolac Tromethamine 30 mg 02/25/17 19:00 02/25/17 19:25 Toradol IVPUSH 02/25/17 19:01 30 mg ONETIME ONE Administration Lorazepam 2 mg 02/25/17 19:00 02/25/17 19:23 Ativan IVPUSH 02/25/17 19:01 2 mg ONETIME ONE Administration Departure - Departure Time of Disposition: 20:05 Disposition: Refer to Observation Condition: Good Clinical Impression: Fall - Discharge Information Referrals: PCP,None [Primary Care Provider] - Forms: ED Department Discharge - My Orders Last 24 Hours: My Active Orders 02/25/17 18:41 Head wo Cont [CT] Stat UA W/MICROSCOPIC [URIN] Stat - Assessment/Plan Last 24 Hours: My Active Orders 02/25/17 18:41 Head wo Cont [CT] Stat UA W/MICROSCOPIC [URIN] Stat
[2017-02-25] MEDS ORDERED: Flu Vaccine 2016-17(36Mos+)/PF 60 MCG/0.5 ML Syringe IM ONE (21:25)
[2017-02-26] MEDS ORDERED: Haloperidol 1 MG Tab PO PRN (07:16)
[2017-02-26] MEDS ORDERED: Acetaminophen 325 MG Tab PO PRN (08:03)
[2017-02-26] MEDS ORDERED: cefTRIAXone 1 GM in Premix Bag 1 BAG IV SCH (08:15)
[2017-02-26] MEDS: Potassium Chloride 10 MEQ Tab.ER PO SCH ×2 (08:34→09:53)
[2017-02-26] MEDS ORDERED: Hydrochlorothiazide 25 MG Tab PO SCH (09:00)
[2017-02-26] MEDS ORDERED: Donepezil 10 MG Tab PO SCH (09:00)
[2017-02-26] MEDS ORDERED: Lisinopril 10 MG Tab PO SCH (09:00)
--- NOTE | 2017-02-26 09:18 | PCM.HP ---
H&P History of Present Illness - General Date of Service: 02/26/17 Admit Problem/Dx: Admission Diagnosis/Problem Admission Diagnosis/Problem Fall Source of Information: Patient, Family, Old Records History Limitations: Reports: Other (Dementia) - History of Present Illness Initial Comments - Free Text/Narative: This 76 year old female with pmh of dementia, hyperlipidemia, hypertension, hypothyroidism, bradycardia and vertigo presented to the ED last night with her with concerns of vertigo, lightheadedness and just not feeling well. She is unable to describe what is going on. Her reports she has these dizzy spells frequently, not much was different as to why they sought treatment , besides she wasn't overall feeling well. She was getting dizzy upon standing and "fell" but land back in the chair without any trauma. She denies any pain, no chest pain, shortness of breath, or palpitations. She denies abdominal pain, diarrhea, constipation or urinary symptoms. She has been extensively worked up with bradycardia and dizziness with cardiology, Dr. Rondon. Who she follows with along with Dr. Gonzalez. Recently, January 31, Dr. Rondon stopped all BP medications along with Metoprolol. In the ED, BUN and Cr slighlty elevated form baseline, 25 and 1.2 Ua +1 bacteria , WBC 4-6 small leukocyte esterase, and neg nitrite. Head CT negative for acute intracranial process. 1 L NS given in ED along with Toradol and Ativan 2mg IV. She was admitted observation for dizziness - Related Data Allergies/Adverse Reactions: Allergies Allergy/AdvReac Type Severity Reaction Status Date / Time No Known Allergies Allergy Verified 02/25/17 18:30 Home Medications: Home Meds Potassium Chloride 10 meq PO DAILY 07/23/15 [History] Simvastatin [Zocor] 40 mg PO BEDTIME 07/23/15 [History] Sucralfate [Carafate] 1 gram PO QIDACANDBED 07/23/15 [History] Levothyroxine [Synthroid] 100 mcg PO ACBREAKFAST 12/03/16 [History] Donepezil [Aricept] 10 mg PO DAILY 02/21/17 [History] Haloperidol [Haldol] 1 - 2 tab PO DAILY PRN 02/21/17 [History] Cephalexin [Keflex] 500 mg PO BID #12 capsule 02/26/17 [Rx] Past Medical History HEENT History: Reports: None Other HEENT History: wears glasses Cardiovascular History: Reports: High Cholesterol, Hypertension Respiratory History: Reports: None Gastrointestinal History: Reports: None Genitourinary History: Reports: None [employer] History: Reports: Musculoskeletal History: Reports: None Neurological History: Reports: Other (See Below) Other Neuro History: dementia Psychiatric History: Reports: Dementia Endocrine/Metabolic History: Reports: Hypothyroidism Hematologic History: Reports: None Dermatologic History: Reports: None - Infectious Disease History Infectious Disease History: Reports: Chicken Pox, Measles - Past Surgical History HEENT Surgical History: Reports: None GI Surgical History: Reports: Appendectomy, Cholecystectomy Female Surgical History: Reports: Hysterectomy Social & Family History - Family History Family Medical History: Noncontributory Cardiac: Reports: [place] - Tobacco Use Smoking Status *Q: Never Smoker Second Hand Smoke Exposure: No - Caffeine Use Caffeine Use: Reports: None - Recreational Drug Use Recreational Drug Use: No H&P Review of Systems - Review of Systems: Review Of Systems: See Below General: Reports: No Symptoms. Denies: Fever, Chills, Malaise HEENT: Reports: No Symptoms. Denies: Headaches, Sinus Congestion, Sore Throat, Visual Changes Pulmonary: Reports: No Symptoms. Denies: Shortness of Breath Cardiovascular: Reports: Lightheadedness. Denies: Chest Pain, Syncope Gastrointestinal: Reports: No Symptoms. Denies: Abdominal Pain, Black Stool, Bloody Stool, Nausea, Vomiting Genitourinary: Reports: No Symptoms. Denies: Dysuria, Frequency, Burning, Pain Musculoskeletal: Reports: No Symptoms Skin: Reports: No Symptoms Psychiatric: Reports: No Symptoms Neurological: Reports: Dizziness. Denies: Headache, Numbness, Paresthesia, Change in Speech Hematologic/Lymphatic: Reports: No Symptoms Immunologic: Reports: No Symptoms Exam - Exam Exam: See Below - Vital Signs Vital Signs: Last Vital Signs Temp 96.6 F 02/26/17 08:00 Pulse 59 L 02/26/17 08:00 Resp 16 02/26/17 08:00 BP 113/60 02/26/17 08:00 Pulse Ox 98 02/26/17 08:00 Weight: 68.5 kg - Exam General: Alert, Cooperative. No: Oriented (baseline, alert x 2, person and place) HEENT: Conjunctiva Clear, Hearing Intact, Mucosa Moist & [place], Posterior Pharynx Clear, Pupils Equal Neck: Supple, Trachea Midline, 2 Lungs: Clear to Auscultation, Normal Respiratory Effort Cardiovascular: Regular Rate, Regular Rhythm, Bradycardia (50-60s to asculation) , Systolic Murmur. No: Irregular Rhythm GI/Abdominal Exam: Normal Bowel Sounds, Soft, Non-Tender, No Organomegaly, No Distention, No Abnormal Bruit, No Mass, Pelvis Stable Extremities: Normal Inspection, Normal Range of Motion, Non-Tender, No Pedal Edema, Normal Capillary Refill Neuro Extensive - Mental Status: Alert, Normal Mood/Affect, Normal Cognition, Memory Intact. No: Oriented x3 Psychiatric: Alert, Normal Affect, Normal Mood - Patient Data Lab Results Last 24 hrs: Laboratory Results - last 24 hr 02/26/17 02/26/17 02/26/17 Range/Units 04:12 04:12 05:50 WBC 6.67 (4.0-11.0) K/uL RBC 3.37 L (4.30-5.90) M/uL Hgb 10.8 L (12.0-16.0) g/dL Hct 32.5 L (36.0-46.0) % MCV 96.4 (80.0-98.0) fL MCH 32.0 (27.0-32.0) pg MCHC 33.2 (31.0-37.0) g/dL RDW Std Deviation 45.8 (28.0-62.0) fl RDW Coeff of Rafa 13 (11.0-15.0) % Plt Count 220 (150-400) K/uL MPV 10.00 (7.40-12.00) fL Neut % (Auto) 50.6 (48.0-80.0) % Lymph % (Auto) 37.8 (16.0-40.0) % [place] % (Auto) 9.4 (0.0-15.0) % Eos % (Auto) 1.9 (0.0-7.0) % Baso % (Auto) 0.3 (0.0-1.5) % Neut # (Auto) 3.4 (1.4-5.7) K/uL Lymph # (Auto) 2.5 H (0.6-2.4) K/uL [place] # (Auto) 0.6 (0.0-0.8) K/uL Eos # (Auto) 0.1 (0.0-0.7) K/uL Baso # (Auto) 0.0 (0.0-0.1) K/uL Nucleated RBC % 0.0 /100WBC Nucleated RBCs # 0 K/uL Sodium 140 (136-146) mmol/L Potassium 4.1 (3.5-5.1) mmol/L Chloride 108 (98-110) mmol/L Carbon Dioxide 25 (21-31) mmol/L BUN 24 H (6.0-23.0) mg/dL Creatinine 1.0 (0.6-1.5) mg/dL Est Cr Clr Drug Dosing 38.34 mL/min Estimated GFR (MDRD) 53.6 ml/min Glucose 84 (60-110) mg/dL Calcium 9.2 (8.8-10.8) mg/dL Urine Color YELLOW Urine Appearance CLEAR Urine pH 5.5 (5.0-8.0) Ur Specific [place] 1.020 (1.001-1.035) Urine Protein NEGATIVE (NEGATIVE) mg/dL Urine Glucose (UA) NEGATIVE (NEGATIVE) mg/dL Urine Ketones NEGATIVE (NEGATIVE) mg/dL Urine Occult Blood NEGATIVE (NEGATIVE) Urine Nitrite NEGATIVE (NEGATIVE) Urine Bilirubin NEGATIVE (NEGATIVE) Urine Urobilinogen 0.2 (<2.0) EU/dL Ur Leukocyte Esterase SMALL (NEGATIVE) Urine RBC 0-1 (0-2/HPF) Urine WBC 4-6 (0-5/HPF) Ur Epithelial Cells MODERATE (NONE-FEW) Urine Bacteria 1+ H (NEGATIVE) Urine Mucus LIGHT (NONE-MOD) Result Diagrams: 02/26/17 04:12 02/26/17 04:12 *Q Meaningful Use (ADM) - VTE *Q VTE Criteria *Q: - Stroke *Q Stroke Criteria *Q: - AMI *Q AMI Criteria *Q: - Problem List (1) UTI (urinary tract infection) SNOMED Code(s): 06015588 ICD Code: N39.0 - URINARY TRACT INFECTION, SITE NOT SPECIFIED Status: Acute Current Visit: Yes Qualifiers: Urinary tract infection type: acute cystitis Hematuria presence: without hematuria Qualified Code(s): N30.00 - Acute cystitis without hematuria (2) Dementia SNOMED Code(s): 84727682 ICD Code: F03.90 - UNSPECIFIED DEMENTIA WITHOUT BEHAVIORAL DISTURBANCE Status: Chronic Current Visit: No Qualifiers: Dementia type: unspecified type Dementia behavioral disturbance: with behavioral disturbance Qualified Code(s): F03.91 - Unspecified dementia with behavioral disturbance (3) Dizziness SNOMED Code(s): 627867139, 185529477 ICD Code: R42 - DIZZINESS AND GIDDINESS Status: Chronic Current Visit: No Problem List Initiated/Reviewed/Updated: Yes Orders Last 24hrs: Active Orders 24 hr Category Date Time Status Antiembolic Devices [RC] PER UNIT ROUTINE Care 02/26/17 08:04 Active Intake and Output [RC] QSHIFT Care 02/26/17 08:03 Active Orthostatic Vital Signs [RC] Q12HR Care 02/26/17 08:01 Active Oxygen Therapy [RC] PRN Care 02/26/17 08:03 Active Telemetry Monitoring [Cardiac Monitoring] [RC] . Care 02/25/17 20:37 Active DIRECTED Up With Assistance [RC] ASDIRECTED Care 02/26/17 08:03 Active VTE/DVT Education [RC] PER UNIT ROUTINE Care 02/26/17 08:03 Active Vital Signs [RC] Q4H Care 02/26/17 08:03 Active Consult to Physical Therapy [PT Evaluation and Cons 02/25/17 23:17 Active Treatment] [CONS] Routine Regular Diet [DIET] Diet 02/26/17 Breakfast Active CULTURE URINE [RM] Routine Lab 02/26/17 05:55 Received Acetaminophen [Tylenol] Med 02/26/17 08:03 Active 650 mg PO Q4H PRN Donepezil [Aricept] Med 02/26/17 09:00 Active 5 mg PO DAILY Haloperidol [Haldol] Med 02/26/17 07:16 Active 0.5 mg PO BID PRN Potassium Chloride [Klor-Con 10] Med 02/26/17 07:30 Active 10 meq PO DAILY Simvastatin [Zocor] Med 02/26/17 21:00 Active 40 mg PO BEDTIME cefTRIAXone [Rocephin in Dextrose,Iso-Osm 1 GM/50 ML] 1 Med 02/26/17 08:15 Active gm Premix Bag 1 bag IV Q24H Sequential Compression Device [OM.PC] Per Unit Routine Oth 02/26/17 08:03 Ordered Medication Orders Acetaminophen (Tylenol) 650 mg PO Q4H PRN PRN Reason: Pain Donepezil HCl (Aricept) 5 mg PO DAILY [facility] Last Admin: 02/26/17 08:34 Dose: 5 mg Haloperidol (Haldol) 0.5 mg PO BID PRN PRN Reason: Anxiety Ceftriaxone Sodium/Dextrose 1 (gm/ Premix) 50 mls @ 100 mls/hr IV Q24H [facility] Last Admin: 02/26/17 08:33 Dose: 100 mls/hr Potassium Chloride (Klor-Con 10) 10 meq PO DAILY [facility] Last Admin: 02/26/17 08:34 Dose: 10 meq Simvastatin (Zocor) 40 mg PO BEDTIME [facility] Assessment/Plan Comment:: DISCHARGE PLAN Discharge Diagnoses: Dizziness UTI Dementia Hx bradycardia Hx of HTN dyslipidemia Case discussed in depth with Dr. Canas and agrees with discharge plan. in room and also agrees with plan for discharge home with Home health. Pamela was admitted and observed overnight. This morning she is feeling ok, still tired but was up with nursing and denied dizziness. She was treated with Rocephin for UTI, UC pending. Patient was seen by PT here in the hospital, no skilled needs assessed here but recommended home with Home Health and PT. HR did dip to 40s during sleeping hours, while awake 50-70s. BP was lower after receiving 2 mg IV ativan. This morning back to 110s/60s. Encouraged to continue to stop BP medications. He will continue with [facility] at home and would also like Home Health. I will order Home Health, skilled assessment is needed for medication compliance and changes to medications by primary care. Physical therapy will be ordered as well to assess unsteady gait along with OT to evaluate home safety as well. She is home bound, needing assistance from to drive her anywhere and is his assistance to ambulate do to slightly unsteady gait. Dr. Gonzalez, PCP, will follow with plan of care. I will arrange follow up with Dr. Gonzalez and Dr. Rondon as well in 1 week. I will send her home with 6 more days of Keflex BID for UTI. She was encouraged to return to clinic or ED if concerns should arise.
[2017-02-26 12:23] VITALS: BP 137/68
--- NOTE | 2017-02-26 15:59 | CT ---
EXAM DATE: 02/25/17 PATIENT'S AGE: 76 Patient: ZACHARIAH HAHN Facility: [place], [place] Site . Site : 1940 Study: CT Head WO CONT [id number]/5/2017 8:28:19 PM Ordering Physician: Doctor Melendez Final Report: INDICATION: WEAKNESS, DIZZY TECHNIQUE: CT Head without contrast. COMPARISON: 12/03/2016 FINDINGS: There is no sign of intracranial hemorrhage or mass effect. Diffuse cerebral atrophy. Nonspecific low-attenuation along the periventricular white matter, most likely related to chronic microvascular disease. The issa-white differentiation is preserved. No abnormal intra-axial or extra-axial fluid collection. No acute disease of the visualized paranasal sinuses and mastoid air cells. No fracture evident. No scalp hematoma/laceration. IMPRESSION: No acute intracranial process. Dictated by: Pankaj Spencer MD @ 02/25/2017 20:43:10 (Electronic Signature) Report Signed by Proxy. [facility]ITAL[facility]egan
[2017-02-26] MEDS ORDERED: Simvastatin 40 MG Tab PO SCH (21:00)
== END 2017-02-26 12:47 | disposition home health service (06) ==
LOC: MW.ED 18:09 → MW.MS 20:05
PROVIDERS: ADMIT Internal Medicine; ATTEND Internal Medicine
DX: R42 Dizziness and giddiness (principal); N30.00 Acute cystitis without hematuria; F03.91 Unspecified dementia, unspecified severity, with behavioral disturbance; E78.00 Pure hypercholesterolemia, unspecified; E03.9 Hypothyroidism, unspecified; I10 Essential (primary) hypertension; Z79.899 Other long term (current) drug therapy; Z90.49 Acquired absence of other specified parts of digestive tract; Z90.710 Acquired absence of both cervix and uterus
CPT/HCPCS: 36415; 70450; 80048; 80053; 81001; 85025; 87086; 96361; 96365; 96375; 97161; 99285; A9270; G0378; J0696; J1885; J2060; J7040; 96374; 99282

== ENCOUNTER 2017-10-31 21:49 | Emergency (ER) | payer MEDICARE, BC ==
[2017-10-31] MEDS ORDERED: Sodium Chloride 0.9% 10 ML Syringe FLUSH PRN (21:56)
[2017-10-31] MEDS ORDERED: Sodium Chloride 0.9% 2.5 ML Syringe FLUSH PRN (21:56)
--- NOTE | 2017-10-31 22:04 | EDM.PDOC ---
ED HPI GENERAL MEDICAL PROBLEM - General Chief Complaint: General Stated Complaint: FALL Time Seen by Provider: 10/31/17 21:56 - History of Present Illness INITIAL COMMENTS - FREE TEXT/NARRATIVE: HISTORY AND PHYSICAL: History of present illness: The patient is a 77-year-old female with a history of hypertension hypothyroidism and Alzheimer's disease who lives at [facility] dementia unit and is a code 3 status and presents via EMS after she was found on the floor in the hallway of the unit after a simple fall. The patient is unsure how she fell to the ground but was last seen prior to the fall about 20 minutes previously and was not prolonged on the floor per staff. The patient initially complained of pain in her tailbone but c-collar was placed by EMS and they transferred her here with an IV and gave her 25 g of fentanyl. On arrival the patient is pain-free. She denied any head or neck pain no chest pain abdominal pain nausea or vomiting and she tells me she had a normal day earlier. Patient is not a good historian and cannot relate any of the events of this evening. She says she is not short of breath and has no nausea or abdominal pain currently. Patient denies any extremity complaints chest wall complaints or hip complaints. Review of systems: As per history of present illness and below otherwise all systems reviewed and negative. Past medical history: As per history of present illness and as reviewed below otherwise noncontributory. Surgical history: As per history of present illness and as reviewed below otherwise noncontributory. Social history: No reported history of drug or alcohol abuse. Family history: As per history of present illness and as reviewed below otherwise noncontributory. Physical exam: General: Well-developed well-nourished female who is cooperative and has a c- collar in place. She moves all extremities but continuously and vital signs are noted by me HEENT: Atraumatic, normocephalic, pupils reactive, negative for conjunctival pallor or scleral icterus, mucous membranes moist, throat clear, neck supple, nontender, trachea midline. There are no midline step-offs tenderness defects of the cervical spine but due to her age and the unclear circumstances of tonight's events the c-collar was maintained. There is no facial swelling or defects and there is no scalp tenderness defects or deformities. Lungs: Clear to auscultation, breath sounds equal bilaterally, chest nontender. Heart: S1S2, regular rate and rhythm no overt murmurs Abdomen: Soft, nondistended, nontender. Negative for masses or hepatosplenomegaly. Negative for costovertebral tenderness. Pelvis: Stable nontender. No lateral hip tenderness on push and squeeze Genitourinary: Deferred. Rectal: Deferred. Extremities: Atraumatic, full range of motion without defects or deficits but there is some increased tone in the lower extremities negative for cords or calf pain. Neurovascular unremarkable. Neuro: Awake, alert, oriented to person. Cranial nerves II through XII unremarkable. Motor and sensory unremarkable throughout. Exam nonfocal. Skin: There are several scattered areas on the upper extremities of old bruising noted of which looks acute to me. Turgor is normal and there are no rashes or lesions. Back: There are no midline step-offs or defects of the thoracic or lumbar spine but there is some tenderness to palpation of the midline along the lumbar spine area but there is no pelvis tenderness posteriorly no rib tenderness and no skin changes such as ecchymosis abrasions erythema or soft tissue swelling. Diagnostics: EKG CBC CMP UA CT scan of the head and C-spine, 1 view chest x-ray pelvis x-ray and LS spine x-rays urine culture Therapeutics: Patient received fentanyl 25 g per EMS prior to arrival and is currently pain- free. Levaquin oral for early UTI EKG shows a sinus rhythm rate of 65 with a left bundle branch block and this was compared to a prior one on December 03, 2016 which is unchanged I discussed all testing results with the patient and family at bedside. I will write a prescription for Cipro to start tomorrow at [facility] and rehabilitation and I will advise more hydration. I will plan on disposition back to [facility] rehabilitation Impression: Simple fall with lumbar back pain; mild dehydration and early UTI Definitive disposition and diagnosis as appropriate pending reevaluation and review of above. Neck and Sacral Area Pain Score (Numeric/FACES): 0 - Related Data Allergies Allergy/AdvReac Type Severity Reaction Status Date / Time No Known Allergies Allergy Verified 10/31/17 21:59 Home Meds: Home Meds Levothyroxine [Synthroid] 100 mcg PO ACBREAKFAST 12/03/16 [History] Donepezil HCl [Donepezil HCl Odt] 10 mg PO QPM 10/31/17 [History] LORazepam 0.25 mg PO TID 10/31/17 [History] Meloxicam 7.5 mg PO QAM 10/31/17 [History] Nut.Sup,Spec.Frm,L-Fr,Iron/Fos [Twocal HN] 3 oz PO DAILY 10/31/17 [History] OLANZapine [ZyPREXA] 5 mg PO BID 10/31/17 [History] Sennosides 8.6 mg PO QPM 10/31/17 [History] Sertraline [Zoloft] 150 mg PO QPM 10/31/17 [History] Past Medical History HEENT History: Reports: None Other HEENT History: wears glasses Cardiovascular History: Reports: High Cholesterol, Hypertension Respiratory History: Reports: None Gastrointestinal History: Reports: None Genitourinary History: Reports: None RNFA History: Reports: Musculoskeletal History: Reports: None Neurological History: Reports: Other (See Below) Other Neuro History: dementia Psychiatric History: Reports: Dementia Endocrine/Metabolic History: Reports: Hypothyroidism Hematologic History: Reports: None Dermatologic History: Reports: None - Infectious Disease History Infectious Disease History: Reports: Chicken Pox, Measles - Past Surgical History HEENT Surgical History: Reports: None GI Surgical History: Reports: Appendectomy, Cholecystectomy Female Surgical History: Reports: Hysterectomy Social & Family History - Family History Family Medical History: Noncontributory Cardiac: Reports: [place] - Caffeine Use Caffeine Use: Reports: None ED ROS GENERAL - Review of Systems Review Of Systems: ROS reveals no pertinent complaints other than HPI. ED EXAM, GENERAL - Physical Exam Exam: See Below (See dictation) Course - Vital Signs Last Recorded V/S: Last Vital Signs Temp 36.3 C 10/31/17 21:55 Pulse 71 10/31/17 22:20 Resp 18 10/31/17 22:20 BP 128/51 L 10/31/17 22:20 Pulse Ox 100 10/31/17 22:20 - Orders/Labs/Meds Orders: Active Orders 24 hr Category Date Time Status Cardiac Monitoring [RC] . DIRECTED Care 10/31/17 21:57 Active EKG Documentation Completion [RC] STAT Care 10/31/17 21:57 Active Oxygen Therapy, ED [RC] ASDIRECTED Care 10/31/17 21:57 Active Pulse Oximetry [RC] ASDIRECTED Care 10/31/17 21:57 Active Cervical Spine wo Cont [CT] Stat Exams 10/31/17 21:57 Taken Chest 1V Frontal [CR] Stat Exams 10/31/17 21:58 Taken Head wo Cont [CT] Stat Exams 10/31/17 21:57 Taken Lumbar Spine 2 or 3V [CR] Stat Exams 10/31/17 21:58 Taken Pelvis 1V or 2V [CR] Stat Exams 10/31/17 21:58 Taken CULTURE URINE [RM] Stat Lab 10/31/17 23:32 Ordered UA W/MICROSCOPIC [URIN] Stat Lab 10/31/17 23:10 Ordered Levofloxacin [Levaquin] Med 10/31/17 23:34 Once 500 mg PO ONETIME ONE Sodium Chloride 0.9% [Saline Flush] Med 10/31/17 21:56 Active 10 ml FLUSH ASDIRECTED PRN Sodium Chloride 0.9% [Saline Flush] Med 10/31/17 21:56 Active 2.5 ml FLUSH ASDIRECTED PRN Saline Lock Insert [OM.PC] Stat Oth 10/31/17 21:56 Ordered Medication Orders Levofloxacin (Levaquin) 500 mg PO ONETIME ONE Stop: 10/31/17 23:35 Sodium Chloride (Saline Flush) 10 ml FLUSH ASDIRECTED PRN PRN Reason: Keep Vein Open Sodium Chloride (Saline Flush) 2.5 ml FLUSH ASDIRECTED PRN PRN Reason: Keep Vein Open Labs: Laboratory Tests 10/31/17 10/31/17 10/31/17 Range/Units 22:21 22:21 23:10 WBC 7.18 (4.0-11.0) K/uL RBC 3.62 L (4.30-5.90) M/uL Hgb 10.9 L (12.0-16.0) g/dL Hct 33.6 L (36.0-46.0) % MCV 92.8 (80.0-98.0) fL MCH 30.1 (27.0-32.0) pg MCHC 32.4 (31.0-37.0) g/dL RDW Std Deviation 49.8 (28.0-62.0) fl RDW Coeff of Rafa 15 (11.0-15.0) % Plt Count 154 (150-400) K/uL MPV 10.30 (7.40-12.00) fL Neut % (Auto) 60.0 (48.0-80.0) % Lymph % (Auto) 24.7 (16.0-40.0) % [place] % (Auto) 11.8 (0.0-15.0) % Eos % (Auto) 3.1 (0.0-7.0) % Baso % (Auto) 0.4 (0.0-1.5) % Neut # (Auto) 4.3 (1.4-5.7) K/uL Lymph # (Auto) 1.8 (0.6-2.4) K/uL [place] # (Auto) 0.9 H (0.0-0.8) K/uL Eos # (Auto) 0.2 (0.0-0.7) K/uL Baso # (Auto) 0.0 (0.0-0.1) K/uL Nucleated RBC % 0.0 /100WBC Nucleated RBCs # 0 K/uL Sodium 142 (136-145) mmol/L Potassium 3.5 (3.5-5.1) mmol/L Chloride 107 (98-107) mmol/L Carbon Dioxide 30.4 (21.0-32.0) mmol/L BUN 31 H (7.0-18.0) mg/dL Creatinine 0.9 (0.6-1.0) mg/dL Est Cr Clr Drug Dosing 43.77 mL/min Estimated GFR (MDRD) > 60.0 ml/min Glucose 83 (74-106) mg/dL Calcium 9.5 (8.5-10.1) mg/dL Total Bilirubin 0.3 (0.2-1.0) mg/dL AST 27 (15-37) IU/L ALT 27 (14-63) IU/L Alkaline Phosphatase 88 (46-116) U/L Total Protein 6.9 (6.4-8.2) g/dL Albumin 3.6 (3.4-5.0) g/dL Globulin 3.3 (2.0-3.5) g/dL Albumin/Globulin Ratio 1.1 L (1.3-2.8) Urine Color YELLOW Urine Appearance HAZY Urine pH 6.5 (5.0-8.0) Ur Specific [place] 1.010 (1.001-1.035) Urine Protein NEGATIVE (NEGATIVE) mg/dL Urine Glucose (UA) NEGATIVE (NEGATIVE) mg/dL Urine Ketones NEGATIVE (NEGATIVE) mg/dL Urine Occult Blood NEGATIVE (NEGATIVE) Urine Nitrite NEGATIVE (NEGATIVE) Urine Bilirubin NEGATIVE (NEGATIVE) Urine Urobilinogen 0.2 (<2.0) EU/dL Ur Leukocyte Esterase MODERATE (NEGATIVE) Urine RBC 1-2 (0-2/HPF) Urine WBC 6-8 (0-5/HPF) Ur Epithelial Cells FEW (NONE-FEW) Urine Bacteria FEW (NEGATIVE) Meds: Medications Generic Name Dose Route Start Last Admin Trade Name Freq PRN Reason Stop Dose Admin Levofloxacin 500 mg 10/31/17 23:34 Levaquin PO 10/31/17 23:35 ONETIME ONE Sodium Chloride 10 ml 10/31/17 21:56 Saline Flush FLUSH ASDIRECTED PRN Keep Vein Open Sodium Chloride 2.5 ml 10/31/17 21:56 Saline Flush FLUSH ASDIRECTED PRN Keep Vein Open Departure - Departure Time of Disposition: 23:35 Disposition: DC/Tfer to SNF 03 Condition: Good Clinical Impression: Fall Qualifiers: Encounter type: initial encounter Qualified Code(s): W19.XXXA - Unspecified fall, initial encounter Back pain Qualifiers: Back pain location: low back pain Chronicity: acute Back pain laterality: bilateral Sciatica presence: without sciatica Qualified Code(s): M54.5 - Low back pain UTI (urinary tract infection) Qualifiers: Urinary tract infection type: acute cystitis Hematuria presence: without hematuria Qualified Code(s): N30.00 - Acute cystitis without hematuria - Discharge Information Referrals: Giovanny Gonzalez MD [Primary Care Provider] - Forms: ED Department Discharge Additional Instructions: The following information is given to patients seen in the emergency department who are being discharged to home. This information is to outline your options for follow-up care. We provide all patients seen in our emergency department with a follow-up referral. The need for follow-up, as well as the timing and circumstances, are variable depending upon the specifics of your emergency department visit. If you don't have a primary care physician on staff, we will provide you with a referral. We always advise you to contact your personal physician following an emergency department visit to inform them of the circumstance of the visit and for follow-up with them and/or the need for any referrals to a consulting specialist. The emergency department will also refer you to a specialist when appropriate. This referral assures that you have the opportunity for followup care with a specialist. All of these measure are taken in an effort to provide you with optimal care, which includes your followup. Under all circumstances we always encourage you to contact your private physician who remains a resource for coordinating your care. When calling for followup care, please make the office aware that this follow-up is from your recent emergency room visit. If for any reason you are refused follow-up, please contact the [facility] emergency department at and ask to speak to the emergency department charge nurse. [address] [place] [address] Please take antibiotics for the early urinary tract infection and we will contact you if the culture reveals any reason to change that care plan. Push more fluids rest and apply ice to all areas of soreness. He may use over-the- counter medications for any discomfort. Return to ER as needed and as discussed. - My Orders Last 24 Hours: My Active Orders 10/31/17 21:56 Sodium Chloride 0.9% [Saline Flush] 10 ml FLUSH ASDIRECTED PRN Sodium Chloride 0.9% [Saline Flush] 2.5 ml FLUSH ASDIRECTED PRN Saline Lock Insert [OM.PC] Stat 10/31/17 21:57 Cardiac Monitoring [RC] . DIRECTED EKG Documentation Completion [RC] STAT Oxygen Therapy, ED [RC] ASDIRECTED Pulse Oximetry [RC] ASDIRECTED Cervical Spine wo Cont [CT] Stat Head wo Cont [CT] Stat 10/31/17 21:58 Chest 1V Frontal [CR] Stat Lumbar Spine 2 or 3V [CR] Stat Pelvis 1V or 2V [CR] Stat 10/31/17 23:10 UA W/MICROSCOPIC [URIN] Stat 10/31/17 23:32 CULTURE URINE [RM] Stat 10/31/17 23:34 Levofloxacin [Levaquin] 500 mg PO ONETIME ONE - Assessment/Plan Last 24 Hours: My Active Orders 10/31/17 21:56 Sodium Chloride 0.9% [Saline Flush] 10 ml FLUSH ASDIRECTED PRN Sodium Chloride 0.9% [Saline Flush] 2.5 ml FLUSH ASDIRECTED PRN Saline Lock Insert [OM.PC] Stat 10/31/17 21:57 Cardiac Monitoring [RC] . DIRECTED EKG Documentation Completion [RC] STAT Oxygen Therapy, ED [RC] ASDIRECTED Pulse Oximetry [RC] ASDIRECTED Cervical Spine wo Cont [CT] Stat Head wo Cont [CT] Stat 10/31/17 21:58 Chest 1V Frontal [CR] Stat Lumbar Spine 2 or 3V [CR] Stat Pelvis 1V or 2V [CR] Stat 10/31/17 23:10 UA W/MICROSCOPIC [URIN] Stat 10/31/17 23:32 CULTURE URINE [RM] Stat 10/31/17 23:34 Levofloxacin [Levaquin] 500 mg PO ONETIME ONE
[2017-10-31 22:44] LABS: CHLORIDE,CL 107 mmol/L (98-107); SODIUM,NA 142 mmol/L (136-145)
[2017-10-31] MEDS ORDERED: Levofloxacin 500 MG Tab PO ONE (23:34)
[2017-11-01] VITALS: BP 114/55
--- NOTE | 2017-11-03 18:12 | CT ---
EXAM DATE: 10/31/17 PATIENT'S AGE: 77 Patient: ZACHARIAH HAHN Facility: [place], [place] Site . Site : 1940 Study: CT Spine Cervical [id number]/11/2018 10:56:08 PM Ordering Physician: Azael Phelan Final Report: INDICATION: Fall with neck pain TECHNIQUE: CT cervical spine without contrast. COMPARISON: None FINDINGS: Vertebrae: Alignment is normal. There are no fractures or suspicious bony lesions. Discs and facet joints: There are degenerative disc changes most severe at C6- 7. There are multilevel degenerative changes in the facets. Extraspinal findings: Paraspinous soft tissues are unremarkable. IMPRESSION: 1. No sign of acute injury. 2. Multilevel degenerative spondylosis. Please note that all CT scans at this facility use dose modulation, iterative reconstruction, and/or weight-based dosing when appropriate to reduce radiation dose to as low as reasonably achievable. Dictated by Kwan Mullins MD @ Oct 31 2017 11:06PM (Electronic Signature) Report Signed by Proxy. MTDD
--- NOTE | 2017-11-03 18:13 | CT ---
EXAM DATE: 10/31/17 PATIENT'S AGE: 77 Patient: ZACHARIAH HAHN Facility: [place], [place] Site . Site : 1940 Study: CT Head [id number]/11/2018 10:56:36 PM Ordering Physician: Azael Phelan Final Report: INDICATION: Fall with pain TECHNIQUE: Head CT without contrast. COMPARISON: 02/25/2017 FINDINGS: CSF spaces: Within normal limits for age. Brain parenchyma: There are nonspecific low attenuation white matter changes consistent with chronic microvascular disease. No sign of mass, hemorrhage, or midline shift. Skull base and calvarium: The visualized paranasal sinuses and mastoid air cells demonstrate no acute or significant findings. The visualized orbits are grossly unremarkable. No skull fractures. There is intracranial atherosclerosis. IMPRESSION: No acute or significant findings.No changes from the prior exam. Please note that all CT scans at this facility use dose modulation, iterative reconstruction, and/or weight-based dosing when appropriate to reduce radiation dose to as low as reasonably achievable. Dictated by Kwan Mullins MD @ Oct 31 2017 11:13PM (Electronic Signature) Report Signed by Proxy. [facility]OSPITALMegan
--- NOTE | 2017-11-03 18:14 | CR ---
EXAM DATE: 10/31/17 PATIENT'S AGE: 77 Patient: ZACHARIAH HAHN Facility: [place], [place] Site . Site : 1940 Study: XRay Spine Lumbar [id number]/11/2018 10:57:00 PM Ordering Physician: Azael Phelan Final Report: INDICATION: Back pain status post fall. TECHNIQUE: Lumbar spine radiograph 3 view COMPARISON: 07/14/2015. FINDINGS: Mild upper lumbar spine levoscoliosis, similar to prior study. Multilevel disc space narrowing, most significant at L4-L5, no significant progression from the prior study. No suspicious osseous lesion or compression fracture. IMPRESSION: 1. No acute abnormality. Lumbar spine degenerative changes with mild levoscoliosis. No significant interval changes from 07/14/2015. Dictated by Foster Johnston MD @ 10/31/2017 11:22:35 PM Dictated by: Foster Johnston MD @ 10/31/2017 23:22:41 (Electronic Signature) Report Signed by Proxy. JEN
--- NOTE | 2017-11-03 18:17 | CR ---
EXAM DATE: 10/31/17 PATIENT'S AGE: 77 Patient: ZACHARIAH HAHN Facility: [place], [place] Site . Site : 1940 Study: XRay Chest [id number]/11/2018 10:57:31 PM Ordering Physician: Azael Phelan Final Report: INDICATION: Fall with pain TECHNIQUE: Chest 1 views COMPARISON: 03/06/2017 FINDINGS: Cardiovascular and mediastinum: Heart size and vasculature are normal in caliber and appearance. Lungs and pleural spaces: Lungs are clear. No sign of infiltrate or mass. No sign of pleural effusion. No pneumothorax. Bones and soft tissues: No significant findings. IMPRESSION: No acute findings and no significant changes from the prior exam. Dictated by Kwan Mullins MD @ Oct 31 2017 11:19PM (Electronic Signature) Report Signed by Proxy. JEN
--- NOTE | 2017-11-03 18:18 | CR ---
EXAM DATE: 10/31/17 PATIENT'S AGE: 77 Patient: ZACHARIAH HAHN Facility: [place], [place] Site . Site : 1940 Study: XRay Pelvis [id number]/11/2018 10:58:03 PM Ordering Physician: Azael Phelan Final Report: INDICATION: Pain. Fall. COMPARISON: 10/03/2015 and 08/03/2015 hip radiographs. FINDINGS/IMPRESSION: No acute fracture identified in the bony pelvis or hips. Mild hip DJD changes, greatest on the left, similar to before. Unremarkable soft tissues. Dictated by Ramo Saunders MD @ 10/31/2017 11:12:51 PM Dictated by: Ramo Saunders MD @ 10/31/2017 23:13:22 (Electronic Signature) Report Signed by Proxy. [facility]ITALMegan
== END 2017-11-01 00:51 ==
LOC: MW.ED 21:49
DX: M54.5 Low back pain (principal); N39.0 Urinary tract infection, site not specified; I10 Essential (primary) hypertension; E03.9 Hypothyroidism, unspecified; E78.00 Pure hypercholesterolemia, unspecified; W18.39XA Other fall on same level, initial encounter; Z79.899 Other long term (current) drug therapy; Z90.49 Acquired absence of other specified parts of digestive tract; G30.9 Alzheimer's disease, unspecified; F02.80 Dementia in other diseases classified elsewhere, unspecified severity, without behavioral disturbance, psychotic disturbance, mood disturbance, and anxiety; Y92.129 Unspecified place in nursing home as the place of occurrence of the external cause
CPT/HCPCS: 36415; 70450; 71045; 72100; 72125; 72170; 80053; 81001; 85025; 87086; 93005; 99285; A9270; 99283

== ENCOUNTER 2019-01-17 20:29 | Emergency (ER) | payer MEDICARE, BC ==
[2019-01-17] MEDS ORDERED: Sodium Chloride 0.9% 1,000 ML IV SCH (20:45)
--- NOTE | 2019-01-17 20:47 | EDM.PDOC ---
ED HPI GENERAL MEDICAL PROBLEM - General Chief Complaint: Lower Extremity Injury/Pain Stated Complaint: PT FELL Time Seen by Provider: 01/17/19 20:45 Source of Information: Reports: Patient, EMS - History of Present Illness INITIAL COMMENTS - FREE TEXT/NARRATIVE: HISTORY AND PHYSICAL: History of present illness: []Patient did have a fall at the group home just prior to arrival she arrives via EMS She had complained of right hip pain, EMS provided 50 mics of fentanyl No fever nausea vomiting chills sweats unknown if head injury or loss of consciousness Review of systems: As per history of present illness and below otherwise all systems reviewed and negative. Past medical history: As per history of present illness and as reviewed below otherwise noncontributory. Surgical history: As per history of present illness and as reviewed below otherwise noncontributory. Social history: No reported history of drug or alcohol abuse. Family history: As per history of present illness and as reviewed below otherwise noncontributory. Physical exam: HEENT: Atraumatic, normocephalic, pupils reactive, negative for conjunctival pallor or scleral icterus, mucous membranes moist, throat clear, neck supple, nontender, trachea midline. Lungs: Clear to auscultation, breath sounds equal bilaterally, chest nontender. Heart: S1S2, regular, negative for clicks, rubs, or JVD. Abdomen: Soft, nondistended, nontender. Negative for masses or hepatosplenomegaly. Negative for costovertebral tenderness. Pelvis: Stable nontender. Genitourinary: Deferred. Rectal: Deferred. Extremities: Atraumatic, negative for cords or calf pain. Neurovascular unremarkable. Neuro: Awake, alert, oriented. Cranial nerves II through XII unremarkable. Cerebellum unremarkable. Motor and sensory unremarkable throughout. Exam nonfocal. Diagnostics: [CBC CMP INR troponin EKG Chest 1 view, pelvis with right hip ] CT head and cervical spine no contrast Therapeutics: []Return to group home Patient stable no complaint while here Impression: [ fall Medical screening exam chronic history of baseline Definitive disposition and diagnosis as appropriate pending reevaluation and review of above. - Related Data Allergies Allergy/AdvReac Type Severity Reaction Status Date / Time No Known Allergies Allergy Verified 05/28/18 17:33 Home Meds: Home Meds Levothyroxine [Synthroid] 100 mcg PO ACBREAKFAST 06/13/17 [History] Donepezil HCl [Donepezil HCl Odt] 10 mg PO QPM 10/31/17 [History] LORazepam 0.25 mg PO TID 10/31/17 [History] Meloxicam 7.5 mg PO QAM 10/31/17 [History] Sennosides 8.6 mg PO QPM 10/31/17 [History] Acetaminophen [Acetaminophen ER] 650 mg PO Q4H PRN 05/19/18 [History] Docusate Sodium [Colace] 1 cap BID 05/28/18 [History] Famotidine 1 tab DAILY 05/28/18 [History] Sertraline [Zoloft] 50 mg PO BEDTIME 05/28/18 [History] Sertraline [Zoloft] 100 mg PO DAILY 05/28/18 [History] Biscolax Suppository 01/17/19 [History] Escitalopram [Lexapro] 10 mg PO DAILY 01/17/19 [History] Phenyleph/Pramoxin/Glycr/w.Pet [Hemorrhoidal Cream] 01/17/19 [History] Polyethylene Glycol 3350 [MiraLAX] 17 gm PO BID 01/17/19 [History] Past Medical History HEENT History: Reports: Impaired Vision, Other (See Below) Other HEENT History: wears glasses Cardiovascular History: Reports: High Cholesterol, Hypertension Other Cardiovascular History: bradycardia; left bundle branch block Respiratory History: Reports: None Gastrointestinal History: Reports: GERD, Other (See Below) Other Gastrointestinal History: dyspepsia Genitourinary History: Reports: 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: Musculoskeletal History: Reports: Osteoarthritis, Other (See Below) Other Musculoskeletal History: cervicalgia; muscle weakness; chronic right shoudler pain, difficulty walking, pain in thoracic spine, hx of falling, abnormalities of gait a nd mobilty Neurological History: Reports: None Other Neuro History: dementia Psychiatric History: Reports: Anxiety, Dementia, Other (See Below) Other Psychiatric History: Dizziness and Giddiness, restlessness and aggitation Endocrine/Metabolic History: Reports: Hypothyroidism, Other (See Below) Other Endocrine/Metabolic History: hypomagnesmia, hypocholesterolemia Hematologic History: Reports: None Immunologic History: Reports: None Oncologic (Cancer) History: Reports: None Dermatologic History: Reports: None Other Dermatologic History: corns and callosities - Infectious Disease History Infectious Disease History: Reports: Chicken Pox, Measles - Past Surgical History Head Surgeries/Procedures: Reports: None HEENT Surgical History: Reports: None Cardiovascular Surgical History: Reports: None Respiratory Surgical History: Reports: None GI Surgical History: Reports: Appendectomy, Cholecystectomy Female Surgical History: Reports: Hysterectomy Endocrine Surgical History: Reports: None Neurological Surgical History: Reports: None Musculoskeletal Surgical History: Reports: None Oncologic Surgical History: Reports: None Dermatological Surgical History: Reports: None Social & Family History - Family History Family Medical History: Noncontributory Cardiac: Reports: [place] - Caffeine Use Caffeine Use: Reports: None Review of Systems - Review of Systems Review Of Systems: See Below ED EXAM, GENERAL - Physical Exam Exam: See Below Course - Vital Signs Last Recorded V/S: Last Vital Signs Temp 98.6 F 01/17/19 20:45 Pulse 99 01/17/19 20:45 Resp 20 01/17/19 20:45 BP 155/73 H 01/17/19 20:45 Pulse Ox 96 01/17/19 20:45 - Orders/Labs/Meds Orders: Active Orders 24 hr Category Date Time Status EKG Documentation Completion [RC] STAT Care 01/17/19 20:40 Active Cervical Spine wo Cont [CT] Stat Exams 01/17/19 20:39 Taken Sodium Chloride 0.9% [Normal Saline] 1,000 ml Med 01/17/19 20:45 Active IV STAT Medication Orders Sodium Chloride (Normal Saline) 1,000 mls @ 125 mls/hr IV STAT RUTH Labs: Laboratory Tests 01/17/19 01/17/19 01/17/19 Range/Units 20:45 20:45 20:45 WBC 6.27 (4.0-11.0) K/uL RBC 3.41 L (4.30-5.90) M/uL Hgb 11.0 L (12.0-16.0) g/dL Hct 34.6 L (36.0-46.0) % MCV 101.5 H (80.0-98.0) fL MCH 32.3 H (27.0-32.0) pg MCHC 31.8 (31.0-37.0) g/dL RDW Std Deviation 49.0 (28.0-62.0) fl RDW Coeff of Rafa 13 (11.0-15.0) % Plt Count 190 (150-400) K/uL MPV 10.50 (7.40-12.00) fL Neut % (Auto) 68.8 (48.0-80.0) % Lymph % (Auto) 19.0 (16.0-40.0) % Hidalgo % (Auto) 10.5 (0.0-15.0) % Eos % (Auto) 1.4 (0.0-7.0) % Baso % (Auto) 0.3 (0.0-1.5) % Neut # (Auto) 4.3 (1.4-5.7) K/uL Lymph # (Auto) 1.2 (0.6-2.4) K/uL Hidalgo # (Auto) 0.7 (0.0-0.8) K/uL Eos # (Auto) 0.1 (0.0-0.7) K/uL Baso # (Auto) 0.0 (0.0-0.1) K/uL Nucleated RBC % 0.0 /100WBC Nucleated RBCs # 0 K/uL INR 1.00 Sodium 143 (136-145) mmol/L Potassium 4.2 (3.5-5.1) mmol/L Chloride 107 (98-107) mmol/L Carbon Dioxide 27.6 (21.0-32.0) mmol/L BUN 30 H (7.0-18.0) mg/dL Creatinine 0.8 (0.6-1.0) mg/dL Est Cr Clr Drug Dosing TNP Estimated GFR (MDRD) > 60.0 ml/min Glucose 102 (74-106) mg/dL Calcium 9.5 (8.5-10.1) mg/dL Total Bilirubin 0.5 (0.2-1.0) mg/dL AST 21 (15-37) IU/L ALT 21 (14-63) IU/L Alkaline Phosphatase 71 (46-116) U/L Troponin I < 0.050 (0.000-0.056) ng/mL Total Protein 7.3 (6.4-8.2) g/dL Albumin 4.0 (3.4-5.0) g/dL Globulin 3.3 (2.6-4.0) g/dL Albumin/Globulin Ratio 1.2 (0.9-1.6) Meds: Medications Generic Name Dose Route Start Last Admin Trade Name Freq PRN Reason Stop Dose Admin Sodium Chloride 1,000 mls @ 125 mls/hr 01/17/19 20:45 Normal Saline IV STAT RUTH Discontinued Medications Generic Name Dose Route Start Last Admin Trade Name Freq PRN Reason Stop Dose Admin Lorazepam 0.5 mg 01/17/19 20:52 01/17/19 21:01 Ativan IVPUSH 01/17/19 20:53 0.5 mg ONETIME ONE Administration Lorazepam Confirm 01/17/19 20:53 01/17/19 21:07 Ativan Administered 01/17/19 20:54 Not Given Dose 2 mg .ROUTE .STK-MED ONE Departure - Departure Time of Disposition: 22:39 Disposition: Home, Self-Care 01 Condition: Fair Clinical Impression: Encounter for medical screening examination Fall Qualifiers: Encounter type: initial encounter Qualified Code(s): W19.XXXA - Unspecified fall, initial encounter - Discharge Information Forms: ED Department Discharge Additional Instructions: The following information is given to patients seen in the emergency department who are being discharged to home. This information is to outline your options for follow-up care. We provide all patients seen in our emergency department with a follow-up referral. The need for follow-up, as well as the timing and circumstances, are variable depending upon the specifics of your emergency department visit. If you don't have a primary care physician on staff, we will provide you with a referral. We always advise you to contact your personal physician following an emergency department visit to inform them of the circumstance of the visit and for follow-up with them and/or the need for any referrals to a consulting specialist. The emergency department will also refer you to a specialist when appropriate. This referral assures that you have the opportunity for follow-up care with a specialist. All of these measure are taken in an effort to provide you with optimal care, which includes your follow-up. Under all circumstances we always encourage you to contact your private physician who remains a resource for coordinating your care. When calling for follow-up care, please make the office aware that this follow-up is from your recent emergency room visit. If for any reason you are refused follow-up, please contact the [facility] emergency department at and asked to speak to the emergency department charge nurse. - My Orders Last 24 Hours: My Active Orders 01/17/19 20:39 Cervical Spine wo Cont [CT] Stat 01/17/19 20:40 EKG Documentation Completion [RC] STAT 01/17/19 20:45 Sodium Chloride 0.9% [Normal Saline] 1,000 ml IV STAT - Assessment/Plan Last 24 Hours: My Active Orders 01/17/19 20:39 Cervical Spine wo Cont [CT] Stat 01/17/19 20:40 EKG Documentation Completion [RC] STAT 01/17/19 20:45 Sodium Chloride 0.9% [Normal Saline] 1,000 ml IV STAT
[2019-01-17] MEDS ORDERED: LORazepam 2 MG/ML SDV IVPUSH ONE (20:52)
[2019-01-17] MEDS ORDERED: LORazepam 2 MG/ML SDV ONE (20:53)
[2019-01-17 21:25] LABS: CHLORIDE,CL 107 mmol/L (98-107); SODIUM,NA 143 mmol/L (136-145)
--- NOTE | 2019-01-17 21:44 | CR ---
INDICATION: Fall. TECHNIQUE: Single portable AP supine view. COMPARISON: January 14, 2018. FINDINGS: The heart and mediastinum and pulmonary vessels are stable and within normal limits. The lungs remain clear. No evidence of pneumothorax. No pleural fluid collection. No alveolar opacification. Visualized osseous structures demonstrate no acute abnormalities. IMPRESSION: Negative single-view portable chest radiograph. Dictated by Michael Guzman MD @ Jan 17 2019 9:40PM Signed by Dr. Michael Guzman @ Jan 17 2019 9:43PM
--- NOTE | 2019-01-17 21:48 | CR ---
INDICATION: Fall. TECHNIQUE: AP view pelvis and 2 views right hip. COMPARISON: January 14, 2018. FINDINGS: No radiographic evidence of fracture/dislocation/acute bone or joint abnormality. Cortical contour and bony alignment are well maintained. Mild degenerative narrowing of the bilateral hip joints, similar to previous examination. 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 Dictated by Michael Guzman MD @ Jan 17 2019 9:43PM Signed by Dr. Michael Guzman @ Jan 17 2019 9:45PM
--- NOTE | 2019-01-17 22:26 | CT ---
INDICATION: Fall. TECHNIQUE: CT head without contrast. COMPARISON: None available FINDINGS: There is artifact near the skullbase, limiting evaluation of the posterior fossa. There is age-related cortical atrophy and ventriculomegaly which probably represent central atrophy. There is no mass effect or midline shift. White matter hypodensities are suggestive of chronic small vessel ischemic changes. There is no loss of issa-white differentiation. There is no evidence of a gross acute intracranial hemorrhage, given the limitations of artifact. No acute calvarial fracture is seen. There is posterior scalp swelling superiorly. There is a small mucosal retention cyst or polyp in the right maxillary sinus. The mastoid air cells are clear. The visualized orbits are within normal limits. IMPRESSION: Artifact limited study. No definite evidence of a gross acute intracranial hemorrhage, mass effect or loss of issa-white differentiation. Dictated by Teo Schneider MD @ 01/17/2019 10:24:47 PM Please note that all CT scans at this facility use dose modulation, iterative reconstruction, and/or weight-based dosing when appropriate to reduce radiation dose to as low as reasonably achievable. Dictated by: Teo Schneider MD @ 01/17/2019 22:24:53 (Electronically Signed)
--- NOTE | 2019-01-17 22:38 | CT ---
INDICATION: Fall TECHNIQUE: CT cervical spine without contrast. COMPARISON: None available FINDINGS: The cervical spine alignment is within normal limits. The craniocervical and atlantoaxial alignments are near anatomical. There is no evidence of an acute cervical spine fracture. A developmentally unfused posterior C1 ring is noted. A sclerotic focus in the left T4 transverse process is nonspecific. There is no significant precervical soft tissue swelling. Degenerative changes are seen, including disc protrusions at C3-4, C5-6 and C6-7. IMPRESSION: No evidence of an acute cervical spine fracture. Dictated by Teo Schneider MD @ 01/17/2019 10:31:46 PM Please note that all CT scans at this facility use dose modulation, iterative reconstruction, and/or weight-based dosing when appropriate to reduce radiation dose to as low as reasonably achievable. Dictated by: Teo Schneider MD @ 01/17/2019 22:36:33 (Electronically Signed)
[2019-01-17 23:25] VITALS: BP 157/72
== END 2019-01-17 23:18 | disposition home or self-care (01) ==
LOC: MW.ED 20:29
DX: M25.551 Pain in right hip (principal); I10 Essential (primary) hypertension; F41.9 Anxiety disorder, unspecified; F03.90 Unspecified dementia, unspecified severity, without behavioral disturbance, psychotic disturbance, mood disturbance, and anxiety; E03.9 Hypothyroidism, unspecified; Z79.899 Other long term (current) drug therapy; Z90.49 Acquired absence of other specified parts of digestive tract; Z90.710 Acquired absence of both cervix and uterus; W19.XXXA Unspecified fall, initial encounter; Y92.129 Unspecified place in nursing home as the place of occurrence of the external cause
CPT/HCPCS: 36415; 70450; 71045; 72125; 73502; 80053; 84484; 85025; 85610; 96374; 99285; J2060

== ENCOUNTER 2019-02-28 09:13 | Emergency (ER) | payer MEDICARE, BC ==
[2019-02-28] MEDS ORDERED: Lidocaine/EPINEPHrine/Tetracaine Soln 1 ML TOP ONE (09:30)
--- NOTE | 2019-02-28 09:33 | EDM.PDOC ---
ED HPI GENERAL MEDICAL PROBLEM - General Chief Complaint: General Stated Complaint: FELL Time Seen by Provider: 02/28/19 09:16 Source of Information: Reports: Family History Limitations: Reports: No Limitations - History of Present Illness INITIAL COMMENTS - FREE TEXT/NARRATIVE: History of present illness: []She was in the activity room at [facility] when she fell and hit her head. She has a small laceration in the back of her head she is currently on no blood thinners is awake and alert without any vomiting and behaving at her baseline. Review of systems: As per history of present illness and below otherwise all systems reviewed and negative. Past medical history: As per history of present illness and as reviewed below otherwise noncontributory. Surgical history: As per history of present illness and as reviewed below otherwise noncontributory. Social history: No reported history of drug or alcohol abuse. Family history: As per history of present illness and as reviewed below otherwise noncontributory. Physical exam: General: Well developed, well nourished in NAD HEENT: 2 cm posterior scalp laceration with minimal bleeding, normocephalic, pupils reactive, negative for conjunctival pallor or scleral icterus, mucous membranes moist, throat clear, neck supple, nontender, trachea midline. TMs show no hemotympanum Lungs: Clear to auscultation, breath sounds equal bilaterally, chest nontender. Heart: S1S2, regular, negative for clicks, rubs, or JVD. Abdomen: NABS, Soft, nondistended, nontender. Negative for masses or hepatosplenomegaly. Negative for costovertebral tenderness. Pelvis: Stable nontender. Genitourinary: Deferred. Rectal: Deferred. Extremities: Atraumatic, . Neurovascular unremarkable. Neuro: Awake, alert. Cranial nerves II through XII unremarkable. Cerebellum unremarkable. Motor and sensory unremarkable throughout. Exam nonfocal. Skin:warm and dry Diagnostics: None Therapeutics: wound stable ED Course: stable Impression: fall-scalp laceration Prescriptions: None Plan: Definitive disposition and diagnosis as appropriate pending reevaluation and review of above. - Related Data Allergies Allergy/AdvReac Type Severity Reaction Status Date / Time No Known Allergies Allergy Verified 02/28/19 09:26 Home Meds: Home Meds Levothyroxine [Synthroid] 100 mcg PO ACBREAKFAST 12/03/16 [History] Donepezil HCl [Donepezil HCl Odt] 10 mg PO QPM 10/31/17 [History] LORazepam 0.25 mg PO TID 10/31/17 [History] Meloxicam 7.5 mg PO QAM 10/31/17 [History] Sennosides 8.6 mg PO QPM 10/31/17 [History] Acetaminophen [Acetaminophen ER] 650 mg PO Q4H PRN 05/19/18 [History] Docusate Sodium [Colace] 1 cap BID 05/28/18 [History] Famotidine 1 tab DAILY 05/28/18 [History] Sertraline [Zoloft] 50 mg PO BEDTIME 05/28/18 [History] Sertraline [Zoloft] 100 mg PO DAILY 05/28/18 [History] Biscolax Suppository 01/17/19 [History] Escitalopram [Lexapro] 10 mg PO DAILY 01/17/19 [History] Phenyleph/Pramoxin/Glycr/w.Pet [Hemorrhoidal Cream] 01/17/19 [History] Polyethylene Glycol 3350 [MiraLAX] 17 gm PO BID 01/17/19 [History] Past Medical History HEENT History: Reports: Impaired Vision, Other (See Below) Other HEENT History: wears glasses Cardiovascular History: Reports: High Cholesterol, Hypertension Other Cardiovascular History: bradycardia; left bundle branch block Respiratory History: Reports: None Gastrointestinal History: Reports: GERD, Other (See Below) Other Gastrointestinal History: dyspepsia Genitourinary History: Reports: 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: Musculoskeletal History: Reports: Osteoarthritis, Other (See Below) Other Musculoskeletal History: cervicalgia; muscle weakness; chronic right shoudler pain, difficulty walking, pain in thoracic spine, hx of falling, abnormalities of gait a nd mobilty Neurological History: Reports: None Other Neuro History: dementia Psychiatric History: Reports: Anxiety, Dementia, Other (See Below) Other Psychiatric History: Dizziness and Giddiness, restlessness and aggitation Endocrine/Metabolic History: Reports: Hypothyroidism, Other (See Below) Other Endocrine/Metabolic History: hypomagnesmia, hypocholesterolemia Hematologic History: Reports: None Immunologic History: Reports: None Oncologic (Cancer) History: Reports: None Dermatologic History: Reports: None Other Dermatologic History: corns and callosities - Infectious Disease History Infectious Disease History: Reports: Chicken Pox, Measles - Past Surgical History Head Surgeries/Procedures: Reports: None HEENT Surgical History: Reports: None Cardiovascular Surgical History: Reports: None Respiratory Surgical History: Reports: None GI Surgical History: Reports: Appendectomy, Cholecystectomy Female Surgical History: Reports: Hysterectomy Endocrine Surgical History: Reports: None Neurological Surgical History: Reports: None Musculoskeletal Surgical History: Reports: None Oncologic Surgical History: Reports: None Dermatological Surgical History: Reports: None Social & Family History - Family History Family Medical History: Noncontributory Cardiac: Reports: [place] - Caffeine Use Caffeine Use: Reports: None ED ROS GENERAL - Review of Systems Review Of Systems: See Below ED EXAM, GENERAL - Physical Exam Exam: See Below ED GENERAL MEDICAL PROCEDURES - Laceration/Wound Repair scalp Lac/wound length in cm: 2 Appearance: Superficial Distal NVT: Neuro & Vascular Intact Anesthetic Type: Topical Local Anesthesia - Lidocaine (Xylocaine): 2% with EPI Local Anesthetic Volume: 2cc Skin Prep: Saline Closed with: Sylvia Drain Placement: No Sterile Dressing Applied: Nurse Tetanus Status Addressed: Yes Complications: No Course - Vital Signs Last Recorded V/S: Last Vital Signs Temp 96.5 F 02/28/19 09:26 Pulse 72 02/28/19 09:26 Resp 18 02/28/19 09:26 BP 136/60 02/28/19 09:26 Pulse Ox 96 02/28/19 09:26 - Orders/Labs/Meds Meds: Medications Discontinued Medications Generic Name Dose Route Start Last Admin Trade Name Freq PRN Reason Stop Dose Admin Lidocaine/Tetracaine 2 ml 02/28/19 09:30 02/28/19 09:42 Let Soln TOP 02/28/19 09:31 2 ml ONETIME ONE Administration Departure - Departure Time of Disposition: 10:03 Disposition: Home, Self-Care 01 Condition: Good Clinical Impression: Scalp laceration Qualifiers: Encounter type: initial encounter Qualified Code(s): S01.01XA - Laceration without foreign body of scalp, initial encounter - Discharge Information *PRESCRIPTION DRUG MONITORING PROGRAM REVIEWED*: No *COPY OF PRESCRIPTION DRUG MONITORING REPORT IN PATIENT SERENA: No Referrals: PCP,Unknown [Primary Care Provider] - Forms: ED Department Discharge Additional Instructions: The following information is given to patients seen in the emergency department who are being discharged to home. This information is to outline your options for follow-up care. We provide all patients seen in our emergency department with a follow-up referral. The need for follow-up, as well as the timing and circumstances, are variable depending upon the specifics of your emergency department visit. If you don't have a primary care physician on staff, we will provide you with a referral. We always advise you to contact your personal physician following an emergency department visit to inform them of the circumstance of the visit and for follow-up with them and/or the need for any referrals to a consulting specialist. The emergency department will also refer you to a specialist when appropriate. This referral assures that you have the opportunity for follow-up care with a specialist. All of these measure are taken in an effort to provide you with optimal care, which includes your follow-up. Under all circumstances we always encourage you to contact your private physician who remains a resource for coordinating your care. When calling for follow-up care, please make the office aware that this follow-up is from your recent emergency room visit. If for any reason you are refused follow-up, please contact the [facility] Emergency Department at and asked to speak to the emergency department charge nurse. [facility] Primary Care [address] [place] [id number]
[2019-02-28 10:16] VITALS: BP 117/55
== END 2019-02-28 10:16 ==
LOC: MW.ED 09:13
DX: S01.01XA Laceration without foreign body of scalp, initial encounter (principal); I10 Essential (primary) hypertension; E78.00 Pure hypercholesterolemia, unspecified; F41.9 Anxiety disorder, unspecified; E03.9 Hypothyroidism, unspecified; Z79.899 Other long term (current) drug therapy; W19.XXXA Unspecified fall, initial encounter; W22.8XXA Striking against or struck by other objects, initial encounter
CPT/HCPCS: 99283

== ENCOUNTER 2019-07-17 05:37 | Emergency (ER) | payer MEDICARE, BC ==
--- NOTE | 2019-07-17 06:30 | CT ---
INDICATION: Fall. Injury TECHNIQUE: CT head without contrast. COMPARISON: None available FINDINGS: There is age-related cortical atrophy and associated ventriculomegaly. There is no mass effect or midline shift. White matter hypodensities are suggestive of chronic small vessel ischemic changes. There is no loss of issa-white differentiation. There is no evidence of an acute intracranial hemorrhage. No acute calvarial fracture is seen. There is mild posterior superior scalp swelling and a superior right scalp laceration. Mild paranasal sinus mucosal thickening is noted. The mastoid air cells are clear. The visualized orbits are within normal limits. IMPRESSION: No evidence of an acute intracranial hemorrhage, mass effect or loss of issa-white differentiation. Age-related atrophy and chronic small vessel ischemic changes. Dictated by Teo Schneider MD @ 07/17/2019 6:29:47 AM Please note that all CT scans at this facility use dose modulation, iterative reconstruction, and/or weight-based dosing when appropriate to reduce radiation dose to as low as reasonably achievable. Dictated by: Teo Schneider MD @ 07/17/2019 06:29:53 (Electronically Signed)
[2019-07-17] MEDS ORDERED: Diphtheria,Pertussis(Acell),Tetanus Vaccine 0.5 ML Syringe IM ONE (06:38)
--- NOTE | 2019-07-17 06:45 | EDM.PDOC ---
ED HPI GENERAL MEDICAL PROBLEM - General Chief Complaint: General Stated Complaint: FALL Time Seen by Provider: 07/17/19 05:48 Source of Information: Reports: Other ([facility] report) History Limitations: Reports: Other (Dementia) - History of Present Illness INITIAL COMMENTS - FREE TEXT/NARRATIVE: Pt with pmh of dementia and recurrent falls presents after reportedly rolling out of bed this am. No other information per NH or son at bedside. - Related Data Allergies Allergy/AdvReac Type Severity Reaction Status Date / Time No Known Allergies Allergy Verified 07/17/19 05:50 Home Meds: Home Meds Levothyroxine [Synthroid] 100 mcg PO ACBREAKFAST 12/03/16 [History] Donepezil HCl [Donepezil HCl Odt] 10 mg PO QPM 10/31/17 [History] LORazepam 0.25 mg PO TID 10/31/17 [History] Meloxicam 7.5 mg PO QAM 10/31/17 [History] Sennosides 8.6 mg PO QPM 10/31/17 [History] Acetaminophen [Acetaminophen ER] 650 mg PO Q4H PRN 05/19/18 [History] Docusate Sodium [Colace] 1 cap BID 05/28/18 [History] Famotidine 1 tab DAILY 05/28/18 [History] Sertraline [Zoloft] 50 mg PO BEDTIME 05/28/18 [History] Sertraline [Zoloft] 100 mg PO DAILY 05/28/18 [History] Biscolax Suppository 01/17/19 [History] Escitalopram [Lexapro] 10 mg PO DAILY 01/17/19 [History] Phenyleph/Pramoxin/Glycr/w.Pet [Hemorrhoidal Cream] 01/17/19 [History] polyethylene glycoL 3350 [MiraLAX] 17 gm PO BID 01/17/19 [History] Past Medical History HEENT History: Reports: Impaired Vision, Other (See Below) Other HEENT History: wears glasses Cardiovascular History: Reports: High Cholesterol, Hypertension Other Cardiovascular History: bradycardia; left bundle branch block Respiratory History: Reports: None Gastrointestinal History: Reports: GERD, Other (See Below) Other Gastrointestinal History: dyspepsia Genitourinary History: Reports: None SETTER OUT History: Reports: Musculoskeletal History: Reports: Osteoarthritis, Other (See Below) Other Musculoskeletal History: cervicalgia; muscle weakness; chronic right shoudler pain, difficulty walking, pain in thoracic spine, hx of falling, abnormalities of gait a nd mobilty Neurological History: Reports: None Other Neuro History: dementia Psychiatric History: Reports: Anxiety, Dementia, Other (See Below) Other Psychiatric History: Dizziness and Giddiness, restlessness and aggitation Endocrine/Metabolic History: Reports: Hypothyroidism, Other (See Below) Other Endocrine/Metabolic History: hypomagnesmia, hypocholesterolemia Hematologic History: Reports: None Immunologic History: Reports: None Oncologic (Cancer) History: Reports: None Dermatologic History: Reports: None Other Dermatologic History: corns and callosities - Infectious Disease History Infectious Disease History: Reports: Chicken Pox, Measles - Past Surgical History Head Surgeries/Procedures: Reports: None HEENT Surgical History: Reports: None Cardiovascular Surgical History: Reports: None Respiratory Surgical History: Reports: None GI Surgical History: Reports: Appendectomy, Cholecystectomy Female Surgical History: Reports: Hysterectomy Endocrine Surgical History: Reports: None Neurological Surgical History: Reports: None Musculoskeletal Surgical History: Reports: None Oncologic Surgical History: Reports: None Dermatological Surgical History: Reports: None Social & Family History - Family History Family Medical History: Noncontributory Cardiac: Reports: NC - Tobacco Use Smoking Status *Q: Never Smoker Second Hand Smoke Exposure: No - Caffeine Use Caffeine Use: Reports: None - Recreational Drug Use Recreational Drug Use: No ED ROS GENERAL - Review of Systems Review Of Systems: Unable To Obtain Reason Not Obtained: Dementia ED EXAM, GENERAL - Physical Exam Exam: See Below Exam Limited By: Other (Dementia) General Appearance: Alert, No Apparent Distress Nose: Normal Inspection Throat/Mouth: Normal Inspection Head: Other (2.5 cm right sided parietal scalp laceration) Neck: Non-Tender. No: Tender Midline Respiratory/Chest: No Respiratory Distress, Lungs Clear, Normal Breath Sounds Cardiovascular: Regular Rate, Rhythm, No JVD GI/Abdominal: Soft, Non-Tender Back Exam: Normal Inspection Extremities: Normal Range of Motion Neurological: Other (Reportedly baseline confusion/dysorientation) ED GENERAL MEDICAL PROCEDURES - Laceration/Wound Repair Right Lac/wound length in cm: 2.5 (Right Parietal Scalp) Appearance: Superficial Distal NVT: Neuro & Vascular Intact Skin Prep: Saline Saline irrigation (cc's): 20 Closed with: [place] # of Sutures: 6 Tetanus Status Addressed: Yes (Tdap given) Complications: No Course - Vital Signs Last Recorded V/S: Last Vital Signs Temp 97.8 F 07/17/19 05:48 Pulse 60 07/17/19 05:48 Resp 18 07/17/19 05:48 BP 128/47 L 07/17/19 05:48 Pulse Ox 98 07/17/19 05:48 - Orders/Labs/Meds Orders: Active Orders 24 hr Category Date Time Status Vaccines to be Administered [RC] PER UNIT ROUTINE Care 07/17/19 06:39 Ordered Diphth,Pertuss(Acell),Tet Vac [Adacel] Med 07/17/19 06:38 Once 0.5 ml IM .ONCE ONE Medication Orders Diphtheria/Tetanus/Acell Pertussis (Adacel) 0.5 ml IM .ONCE ONE Stop: 07/17/19 06:39 Meds: Medications Generic Name Dose Route Start Last Admin Trade Name Freq PRN Reason Stop Dose Admin Diphtheria/Tetanus/Acell Pertussis 0.5 ml 07/17/19 06:38 Adacel IM 07/17/19 06:39 .ONCE ONE - Re-Assessments/Exams Free Text/Narrative Re-Assessment/Exam: 07/17/19 06:47 VS stable and PE as above. CT head negative. Lac repaired and tetanus updated. Pt discharged in NH in stable condition. Departure - Departure Time of Disposition: 06:49 Disposition: Home, Self-Care 01 Condition: Good Clinical Impression: Scalp laceration Qualifiers: Encounter type: initial encounter Qualified Code(s): S01.01XA - Laceration without foreign body of scalp, initial encounter Fall Qualifiers: Encounter type: initial encounter Qualified Code(s): W19.XXXA - Unspecified fall, initial encounter - Discharge Information *PRESCRIPTION DRUG MONITORING PROGRAM REVIEWED*: Not Applicable *COPY OF PRESCRIPTION DRUG MONITORING REPORT IN PATIENT SERENA: Not Applicable Instructions: Laceration Care, Adult, [id number] Referrals: PCP,None [Primary Care Provider] - Sepsis Event Note - Evaluation Sepsis Screening Result: No Definite Risk - Focused Exam Vital Signs: Vital Signs Temp Pulse Resp BP Pulse Ox 07/17/19 05:48 97.8 F 60 18 128/47 L 98 Date Exam was Performed: 07/17/19 Time Exam was Performed: 06:39 - My Orders Last 24 Hours: My Active Orders 07/17/19 06:38 Diphth,Pertuss(Acell),Tet Vac [Adacel] 0.5 ml IM .ONCE ONE 07/17/19 06:39 Vaccines to be Administered [RC] PER UNIT ROUTINE - Assessment/Plan Last 24 Hours: My Active Orders 07/17/19 06:38 Diphth,Pertuss(Acell),Tet Vac [Adacel] 0.5 ml IM .ONCE ONE 07/17/19 06:39 Vaccines to be Administered [RC] PER UNIT ROUTINE
[2019-07-17] MEDS ORDERED: Diphtheria/Tetanus Toxoids,Adult (Td) 0.5 ML Syringe IM ONE (06:46)
[2019-07-17 07:15] VITALS: BP 137/47; PULSE 63
== END 2019-07-17 07:32 | disposition home or self-care (01) ==
LOC: MW.ED 05:37
DX: S01.01XA Laceration without foreign body of scalp, initial encounter (principal); F41.9 Anxiety disorder, unspecified; E03.9 Hypothyroidism, unspecified; Z23 Encounter for immunization; F03.90 Unspecified dementia, unspecified severity, without behavioral disturbance, psychotic disturbance, mood disturbance, and anxiety; Z90.49 Acquired absence of other specified parts of digestive tract; Z79.899 Other long term (current) drug therapy; W06.XXXA Fall from bed, initial encounter
CPT/HCPCS: 12001; 70450; 70450-26; 90471; 90714; 99283-25; 99284